=== PATIENT | female | born 1940 | race Caucasian/White ===

== ENCOUNTER 2018-07-01 11:28 | Outpatient (CLI) | payer MEDICARE, BC | END 2018-07-01 11:29 | disposition home or self-care (01) | LOC: CTENTCT 11:28 | PROVIDERS: ATTEND Otolaryngology Plastic Surgery within the Head & Neck | DX: J01.90 Acute sinusitis, unspecified (principal) | CPT/HCPCS: 70486 ==

== ENCOUNTER 2019-02-22 13:35 | Outpatient (CLI) | payer MEDICARE, BC ==
[~2019-02-22 13:35] MED LIST: ISOVUE-370 76%-LOCM 1 ML ONE
--- NOTE | 2019-02-22 16:02 | CT ---
CT arteriogram abdomen and pelvis with IV contrast and 3-D imaging CT arteriogram runoff bilateral lower extremity with IV contrast and 3-D imaging HISTORY: Vascular disease. Claudication. FINDINGS: Bilateral renal cysts. No evidence of bowel obstruction. Prominent degenerative changes lum bar spine. Mild diverticulosis. No evidence of diverticulitis. Prominent calcification throughout the arterial structures. Mild fusiform ectasia of the lower abdomi nal aorta. Visceral arteries of the abdomen and pelvis are patent with mild to moderate arterial calcification. Dense calcified narrowing at the origin of the right common iliac artery with stenosis estimated at 50%. Occlusion at the proximal right femoral artery with collateralization through the deep femoral b ranches. Reconstitution near the level of the adductor hiatus. Calcification and multilevel mild to moderate narrowing within the popliteal artery. Three-vessel runoff to the right lower leg. Fusiform ectasia of the left common iliac artery. Postoperative changes evident at the left groin. Ca lcification with short segment focus of approximately 50% stenosis within the mid left femoral artery. Multifocal mild stenoses along the course of the femoral and popliteal artery. At the level o f the knee, there is a short segment focus of high-grade stenosis. Three-vessel runoff to the left lower leg. IMPRESSION: Severe atherosclerosis. Long segment occlusion of the right femoral artery. Reconstitutio n near the level of the adductor hiatus. Short segment focus of high grade stenosis at the mid left popliteal artery.
== END 2019-02-22 13:36 | disposition home or self-care (01) ==
LOC: BICCT 13:35
PROVIDERS: ATTEND Thoracic Surgery (Cardiothoracic Vascular Surgery)
DX: I65.8 Occlusion and stenosis of other precerebral arteries (principal); I70.90 Unspecified atherosclerosis; I70.8 Atherosclerosis of other arteries
CPT/HCPCS: 75635; 82565; Q9966

== ENCOUNTER 2019-06-07 07:27 | Outpatient (CLI) | payer MEDICARE, BC ==
[2019-06-07] MEDS ORDERED: Iopamidol 370 76% 100 ML VIAL ONE (09:00)
--- NOTE | 2019-06-07 12:10 | CT ---
CT ABDOMEN WITH IV AND ORAL CONTRAST: Date: 06/07/19 HISTORY: Abdominal bloating. FINDINGS: The lung bases are unremarkable. The liver demonstrates decreased attenuation compared to the spleen consistent with fatty infiltration. No hepatic mass or abnormal biliary ductal dilatation is seen. No calcified gallstones are noted. The spleen is not enlarged and has a normal appearance, measuring 12 .4 cm. The body and tail of the pancreas are atrophic. The remainder of the pancreas is otherwise unr emarkable. The portal vein is dilated. No portosplenic thrombosis seen. Varicosities are seen in the gastrohepatic ligament. The adrenal glands are normal. There are cysts in the kidneys. No free air, free fluid, or lymphadenopathy seen in the abdomen. The small bowel loops are not abnorm ally dilated. There is fecal material in the colon. There is sigmoid diverticulosis. Vascular calcifi cations are present without evidence of aneurysmal dilatation of the abdominal aorta. There are degen erative changes in the spine. IMPRESSION: 1. Fatty liver. 2. Dilated portal vein without evidence of portosplenic thrombosis. 3. Varicosities in the gastrohepatic ligament. 4. Bilateral renal cysts. POS: [facility]
== END 2019-06-07 07:28 | disposition home or self-care (01) ==
LOC: SCSCT 07:27
PROVIDERS: ATTEND Internal Medicine Gastroenterology
DX: R93.89 Abnormal findings on diagnostic imaging of other specified body structures (principal); K76.0 Fatty (change of) liver, not elsewhere classified; N28.1 Cyst of kidney, acquired; I86.4 Gastric varices; I86.8 Varicose veins of other specified sites
CPT/HCPCS: 74160; 82565; Q9967

== ENCOUNTER 2020-10-29 12:39 | Inpatient (IN) | payer MEDICARE, BC ==
[~2020-10-29 12:39] MED LIST changes: -ISOVUE-370 76%-LOCM 1 ML ONE; +Iopamidol 370 76% 50 ML VIAL FS ONE; +Iopamidol-370 76% 500 ML 1 ML ONE
[2020-10-29 13:27] LABS: PTT 28.1 sec (22.9-36.1)
--- NOTE | 2020-10-29 13:27 | RAD ---
Chest AP view INDICATION: Chest pain COMPARISON: Prior exam dated October [facility], [facility] FINDINGS: Lungs: There is increased interstitial and groundglass opacity within the right upper lobe and right lower lobe that appears slightly more pronounced than on the prior exam. Left lung remains clear. Cardiac silhouette: Mild cardiomegaly is stable Pulmonary vasculature: Normal Pleural spaces: No pleural effusion or pneumothorax is demonstrated. Upper abdomen: No abnormality seen. Osseous structures: No acute osseous abnormality. Additional findings: There are surgical clips within the right neck base IMPRESSION: Increased interstitial and groundglass airspace opacity right upper lobe and right lower lobe suspici ous for pneumonia. Stable cardiomegaly
[2020-10-29 13:28] LABS: INR-International Normal Ratio 1.2; Prothrombin Time 15.4 sec (12.0-14.7)
[2020-10-29 13:36] LABS: Hemoglobin 16.5 g/dL (12.0-16.0); Mean Corpuscular HGB CONC 33.1 g/dL (32.0-36.0); Mean Corpuscular Hemoglobin 32.1 pg (27.0-31.0); Mean Corpuscular Volume 96.9 fL (78.0-98.0); Mean Platelet Volume 9.1 fL (7.4-10.4); Platelet Count 182 thou/uL (130-400); RBC Distribution Width 15.2 % (11.5-14.5); Red Blood Cell (RBC) Count 5.14 mill/uL (4.20-5.40)
[2020-10-29 13:42] LABS: White Blood Cell (WBC) Count 23.6 thou/uL (4.8-10.8)
[2020-10-29 13:47] LABS: Band 4 % (5-11); Lymphocytes 3 % (21-51); MDiff Complete? YES; Monocytes 2 % (0-10); Neutrophil 91 % (42-75); Platelet Morphology Comment Appears Adequate; RBC Morphology Normal
[2020-10-29 13:51] LABS: ALT (SGPT) 231 U/L (8-55); AST (SGOT) 195 U/L (5-34); Albumin 3.2 g/dL (3.4-4.8); Alkaline Phosphatase 545 U/L (40-110); Anion Gap 14 mmol/L (10-20); BUN (Urea Nitrogen) 28 mg/dL (9.8-20.1); Bilirubin, Total 15.3 mg/dL (0.2-1.2); Calc. Creatinine Clearance 0 mL/min (70-130); Calcium 8.7 mg/dL (7.8-10.44); Carbon Dioxide 35 mmol/L (23-31); Chloride 90 mmol/L (98-107); Globulin 2.7 g/dL (2.4-3.5); Glucose 135 mg/dL (83-110); Magnesium 2.4 mg/dL (1.6-2.6); Protein, Total 5.9 g/dL (5.8-8.1); Sodium 137 mmol/L (136-145)
[2020-10-29 13:58] LABS: Potassium 2.1 mmol/L (3.5-5.1)
[2020-10-29 14:07] LABS: CKMB 2.3 ng/mL (0-6.6)
[2020-10-29] MEDS ORDERED: NS 0.9% w/ 20 MEQ KCL 1,000 ML IV SCH (14:30)
[2020-10-29] MEDS ORDERED: Aspirin Chewable 81 MG TAB ONE (14:44)
[2020-10-29] MEDS ORDERED: Potassium Chloride 20 MEQ TAB PO SCH ×2 (15:00→21:00)
[2020-10-29] MEDS ORDERED: Potassium Chloride 20 MEQ TAB ONE (15:04)
[2020-10-29] MEDS ORDERED: Magnesium 2 GM/50 ML BAG (IN WATER) ONE (15:04)
[2020-10-29] MEDS ORDERED: Cefepime 2 GM VIAL ONE (15:04)
--- NOTE | 2020-10-29 15:44 | CT ---
CT OF THE ABDOMEN AND PELVIS WITH IV CONTRAST INDICATION: History of abnormal LFTs and abdominal discomfort COMPARISON: Bilateral quadrant ultrasound dated October 26, [address] the abdomen dated June 07, 2019. Comparisons are also made with a CTA aortic dissection protocol dated February 22, 2019. FINDINGS: ABDOMEN: Lung bases: There are small bilateral pleural effusions bibasilar atelectasis. There are multiple pul monary nodules involving both lower lobe suspicious for metastatic disease. There is reticular nodular opacity within the right middle lobe which may reflect a comminuted subsegmental volume loss in the pulmonary lesion. Liver: Numerous hypodense masses are seen within the liver suspicious for metastatic disease. Gallbladder: Contracted Pancreas: Normal. Adrenal glands: Normal. Spleen: Normal. Kidneys and ureters: Bilateral renal cysts are stable. No hydronephrosis. Vasculature: There are severe vascular calcifications seen involving the visualized vasculature. Ther e is mild ectasia of the infrarenal abdominal aorta. Lymph nodes:No lymphadenopathy. Free fluid in abdomen:No free fluid is evident. PELVIS: Small and large bowel: There are scattered colonic diverticula. There is a mild amount retained stool within the colon. The small bowel is of normal caliber. Visualized stomach is unremarkable. Appendix:Not definitely seen Bladder: Normal. Rectal and perirectal soft tissues:Normal. Reproductive structures: Normal. Free fluid in pelvis: No free fluid is evident. Lymphadenopathy pelvis: No lymphadenopathy is evident. Osseous structures: There is diffuse osteopenia. There is subtle 9 mm sclerotic lesion within the yanna tral aspect of L1. This is new from the 2019 examination. There is scattered degenerative and osteoarthritic changes. Soft tissues:Normal. IMPRESSION: 1. Pulmonary and hepatic metastatic disease. 2. Small sclerotic lesion within the central aspect of L1 is new from 2019 suspicious for early osseo us metastatic disease. No additional focal lesion is evident. Bone scan is recommended for further evaluation. 3. Cardiomegaly with small bilateral pleural effusions suspicious for mild CHF. 4. Colonic diverticulosis without evidence of active diverticulitis. Mild amount retained stool withi n the colon. 5. Bilateral renal cysts. 6. Mild ectasia of the infrarenal abdominal aorta.
[2020-10-29] MEDS ORDERED: Ondansetron PF 4 MG/2 ML Vial IVP PRN (20:00)
[2020-10-29] MEDS ORDERED: Ondansetron ODT 4 MG TAB SL PRN (20:00)
[2020-10-29] MEDS ORDERED: Acetaminophen 325 MG TAB PO PRN ×2 (20:00→20:18)
[2020-10-29] MEDS ORDERED: Dextrose 5% in Water 1,000 ML IV PRN (20:18)
[2020-10-29] MEDS ORDERED: Dextrose 50% Abboject 50 ML SYRINGE SLOW IVP PRN (20:18)
[2020-10-29] MEDS ORDERED: hydrALAZINE 20 MG/ML VIAL SLOW IVP PRN (20:18)
[2020-10-29] MEDS ORDERED: HYDROcodone/Acetaminophen 5/325 mg Tablet PO PRN (20:18)
[2020-10-29 20:37] VITALS: BMI 26.6
[2020-10-29] MEDS ORDERED: cefTRIAXone\\ROCEPHIN 1 GM in Sodium Chloride 0.9% 100 ML IVPB SCH (21:00)
[2020-10-29] MEDS: Enoxaparin Sodium 80 MG/0.8 ML SYRINGE SC SCH (21:49)
[2020-10-29] MEDS: NS 0.9% w/ 20 MEQ KCL 1,000 ML/1,000 ML BAG IV SCH (21:49)
[2020-10-29] MEDS ORDERED: Azithromycin 500 MG in Sodium Chloride 0.9% 250 ML 250 ML IVPB SCH (22:00)
--- NOTE | 2020-10-29 22:56 | HP ---
PRIMARY CARE PHYSICIAN: Dr. Sands. CHIEF COMPLAINT: Abnormal lab results. HISTORY OF PRESENT ILLNESS: Ms. Zhao is a very pleasant 80-year-old female who has a history of fatty liver disease. She also has a history of Galvan's esophagus. She says that she has been seeing Dr. Quiroz with regard to the fatty liver. She did some routine lab work and discovered some significant abnormalities and had her come to the emergency room. In the ER, she was found to be severely hypokalemic with a potassium of 2.1. Her transaminases as well as alkaline phosphatase and bilirubin were all elevated and as such, a CT scan of the abdomen was done, which demonstrated multiple nodules within the liver as well as the lungs. She is being admitted for further evaluation. When asked if the patient has had any type of symptoms, she says she has just been feeling tired and weak for the past two months. She also notes unintentional weight loss of about 15 pounds, but no other symptoms. Apparently, she endorsed some cramping abdominal pain to the ER physician, but she denied that when I asked. She has not had any change in her bowels. No vomiting. No fevers. No chills. Otherwise, she has no other complaints. REVIEW OF SYSTEMS: All systems were reviewed and are negative except for that mentioned in the history of present illness. PAST MEDICAL HISTORY: Significant for diabetes, hypertension, hyperlipidemia, peripheral vascular disease, obstructive sleep apnea, Galvan's esophagus, and atrial fibrillation on anticoagulation. PAST SURGICAL HISTORY: She has had a left femoral endarterectomy and a right carotid endarterectomy. ALLERGIES: NO KNOWN DRUG ALLERGIES. FAMILY HISTORY: Significant for heart disease. SOCIAL HISTORY: She is a former smoker. She quit 20 years ago. Prior to that, she smoked two packs a day for at least 40 years. Denies any alcohol use. She says she is happily . She has 2 children and would like to be a full code. CURRENT MEDICATIONS: She says she does not know the names of her medications, but she does go to the [facility] and uses [facility]. PHYSICAL EXAMINATION: GENERAL: She is well developed and well nourished. She does not appear to be in any distress. VITAL SIGNS: Blood pressure was 120/64, heart rate 62, respiratory rate of 17, and temperature was 98.5. HEENT: Her pupils are equal, round, and reactive. Extraocular muscles are intact. Her sclerae are anicteric. NECK: There is no adenopathy. No bruits. LUNGS: Clear to auscultation. There was no wheezing, no rales, no rhonchi. CARDIOVASCULAR: She had a normal S1 and S2. There is no S3 or S4. No murmurs, clicks, or rubs. ABDOMEN: Obese. It is soft, nontender, nondistended. Positive for bowel sounds. No rebound. No guarding. No organomegaly. EXTREMITIES: There is no calf tenderness. No joint effusions. NEUROLOGIC: Her cranial nerves 2 through 12 are intact. Her muscle strength is 5/5 in both her upper and lower extremities. SKIN AND INTEGUMENT: No skin changes. No rashes. LABORATORY DATA: INR is 1.2. The white blood cell count 23.6, hemoglobin 16.5, hematocrit is 49.8, and platelet count is 182. Sodium 137, potassium 2.1, chloride is 90, CO2 is 35, BUN of 28, creatinine 1.02, glucose is 135, magnesium 2.4. Bilirubin is 15.3, AST is 195, ALT is 231, alkaline phosphatase is 545. Natriuretic peptide was 696. Troponin is 0.[address] scan of the abdomen and pelvis, there were multiple pulmonary nodules. There are multiple numerous hypodensities in the liver. There is a small sclerotic lesion at L1 and bilateral renal cyst and evidence of diverticulosis without diverticulitis. She also had a chest x-ray that is demonstrated for cardiomegaly. She had small pleural effusions by my reading and some patchy increase interstitial markings in both lungs. This is by my reading. ASSESSMENT: This is a pleasant 80-year-old female who presents to the emergency room with unintentional weight loss and elevated liver function test and CT evidence suspicious for possible metastatic disease. She has a history of Galvan's esophagus; however, she says this has been monitored closely. However, this is considered a precancerous lesion and therefore, we will start with GI workup and therefore, consult Gastroenterology. We will also check an alpha fetoprotein and a CEA and a CA-125. 1. Bilateral infiltrates. It is possible that this is metastatic disease; however, pneumonia cannot be entirely ruled out. She will be getting a COVID screen and we will also start her on antibiotics for community-acquired pneumonia given the elevated white blood cell count. 2. Hypokalemia. This is likely due to poor oral intake. This will be replaced. 3. Atrial fibrillation. We will need to reconcile and restart her medications. However, we will place her on full dose Lovenox instead of the oral medication in the event she needs a biopsy or some type of procedure. 4. Diabetes mellitus. Again, we will need to reconcile and restart her medications and place her on a sliding scale. 5. Obstructive sleep apnea. She says she believes her CPAP settings are 14 cm of water and therefore, we can place her on nocturnal CPAP. Job ID: [id number] MTDD
[2020-10-29 22:57] LABS: Alpha-Fetoprotein,Tumor Marker 4.3 ng/mL (0.89-8.78)
[2020-10-29 23:29] LABS: Cancer Antigen - CA 125 1674.7 U/mL (Less than 35)
[2020-10-30 02:56] LABS: SARS-CoV-2 PCR by NAA Not Detected (NotDetected)
[2020-10-30 04:59] LABS: #Eosinphils 0.1 thou/uL (0.0-0.7); #Lymphocytes 0.7 thou/uL (1.20-3.40); #Neutrophils 8.2 thou/uL (1.40-6.50); %Basophils 0.1 % (0.0-1.0); %Eosinophils 0.7 % (0.0-10.0); %Lymphocytes 6.7 % (21.0-51.0); %Monocytes 10.3 % (0.0-10.0); %Neutrophils 82.2 % (42.0-75.0); Hemoglobin 14.6 g/dL (12.0-16.0); Mean Corpuscular HGB CONC 33.5 g/dL (32.0-36.0); Mean Corpuscular Hemoglobin 32.6 pg (27.0-31.0); Mean Corpuscular Volume 97.2 fL (78.0-98.0); Mean Platelet Volume 9.5 fL (7.4-10.4); Platelet Count 136 thou/uL (130-400); RBC Distribution Width 15.4 % (11.5-14.5); Red Blood Cell (RBC) Count 4.48 mill/uL (4.20-5.40)
[2020-10-30 05:16] LABS: Anion Gap 15 mmol/L (10-20); BUN (Urea Nitrogen) 24 mg/dL (9.8-20.1); Calc. Creatinine Clearance 72 mL/min (70-130); Calcium 7.7 mg/dL (7.8-10.44); Carbon Dioxide 28 mmol/L (23-31); Chloride 96 mmol/L (98-107); Glucose 137 mg/dL (83-110); Potassium 3.5 mmol/L (3.5-5.1); Sodium 135 mmol/L (136-145)
[2020-10-30] MEDS: Enoxaparin Sodium 80 MG/0.8 ML SYRINGE SC SCH ×2 (08:45→20:44)
[2020-10-30] MEDS ORDERED: Iopamidol 370 76% 100 ML VIAL ONE (10:13)
[2020-10-30] MEDS ORDERED: Ondansetron PF 4 MG/2 ML Vial IVP PRN (10:39)
--- NOTE | 2020-10-30 13:37 | CT ---
CHEST CT WITH CONTRAST: HISTORY: Multiple liver masses. Evaluate for intrathoracic metastases. COMPARISON: None. CORRELATION: Abdomen and pelvis CT 10/29/2020. FINDINGS: Lower neck and axilla: No masses or lymphadenopathy. There are enlarged, necrotic mediastinal lymph nodes. Enlarged right paratracheal lymph node measures 2.8 x 2.6 cm, enlarged prevascular lymph node measures 2.8 x 1.5 cm. Subcarinal enlarged lymph node measures 2.2 x 2.8 cm. Enlarged bilateral hilar lymphadenopathy. Enlarged right hilar lymph node s measured 2.7 x 4.3 cm. Heart size is upper normal. No significant pericardial fluid. There are coronary artery calcification s There is atherosclerosis of a nonaneurysmal aorta. 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 Subdiaphragmatic structures: Refer to separate CT from yesterday with regards to the upper abdomen. T here is evidence of extensive hepatic metastases. Pleural spaces: Small right and trace left effusion. No pneumothorax. Trachea and central bronchi are patent. There is extensive septal thickening throughout the lung parenchyma along with groundglass nodularity . There is a focal masslike opacity in the middle lobe measuring 1.6 x 1.1 cm. Additional pleural-based densities are noted. IMPRESSION: There is evidence of mediastinal lymphadenopathy. Additionally, there appear to be multiple groundgla ss nodules throughout the lung parenchyma suggesting multifocal lung parenchymal metastases. There is a more focal opacity in the middle lobe. Some of these opacities abuts the pleural margins. Transcribed Date/Time: 10/30/2020 1:58 PM
[2020-10-30] MEDS: NS 0.9% w/ 20 MEQ KCL 1,000 ML/1,000 ML BAG IV SCH ×2 (16:12→20:45)
--- NOTE | 2020-10-30 17:37 | PDOC.HOSPP ---
- Subjective Encounter Date: 10/30/20 Subjective: Patient says she is feeling okay. She did not sleep well overnight because all of her medical situation is weighing on her mind. - Objective Vital Signs & Weight: Vital Signs (12 hours) Temp Pulse Resp BP Pulse Ox 10/30/20 16:13 97.9 F 88 17 129/63 97 10/30/20 12:15 98.3 F 70 17 140/70 95 10/30/20 07:30 97.6 F 68 16 145/69 H 96 Weight Weight 175 lb I&O: 10/29/20 10/30/20 10/31/20 06:59 06:59 06:59 Intake Total 500 Output Total 525 Balance -25 Result Diagrams: 10/30/20 04:27 10/30/20 04:27 Additional Labs: Accuchecks 10/30/20 10/30/20 10/29/20 12:37 05:57 20:26 POC Glucose 63 L 125 H 116 H Hospitalist ROS - Medication Medications: Active Medications Generic Name Dose Route Start Last Admin Trade Name Prabhjot PRN Reason Stop Dose Admin Enoxaparin Sodium 80 mg 10/29/20 21:00 10/30/20 08:45 Enoxaparin Sodium 80 Mg/0.8 Ml Syringe SC 80 mg 0900,2100 [facility] Administration Potassium Chloride/Sodium Chloride 1,000 ml in 1,000 mls @ 75 mls/hr 10/29/20 20:18 10/30/20 16:12 Ns 0.9% W/ 20 Meq Kcl IV Not Given .[id number] [facility] Pantoprazole Sodium 40 mg 10/30/20 09:00 10/30/20 08:46 Pantoprazole 40 Mg Tab PO 40 mg DAILY LEONARDO Administration Hospitalist Exam Vitals: Vital Signs (12 hours) Temp Pulse Resp BP Pulse Ox 10/30/20 16:13 97.9 F 88 17 129/63 97 10/30/20 12:15 98.3 F 70 17 140/70 95 10/30/20 07:30 97.6 F 68 16 145/69 H 96 Weight Weight 175 lb General Appearance: NAD Heart: RRR, no murmur, no gallops, no rubs, normal peripheral pulses Respiratory: CTAB, no wheezes, no rales, no ronchi, normal chest expansion, no tachypnea, normal percussion Gastrointestinal: soft, non-tender, non-distended, normal bowel sounds, no palpable masses, no hepatomegaly, no splenomegaly, no bruit Extremities: no cyanosis, no clubbing, no edema Skin: normal turgor Neurological: no new deficit Musculoskeletal: normal tone Psychiatric: normal affect, normal behavior, A&O x 3 Hosp A/P (1) Liver metastases Code(s): C78.7 - SECONDARY MALIG NEOPLASM OF LIVER AND INTRAHEPATIC BILE DUCT Status: Acute (2) Lung metastases Code(s): C78.00 - SECONDARY MALIGNANT NEOPLASM OF UNSPECIFIED LUNG Status: Acute (3) Diabetes mellitus type 2 in nonobese Code(s): E11.9 - TYPE 2 DIABETES MELLITUS WITHOUT COMPLICATIONS Status: Acute (4) Hypertension Code(s): I10 - ESSENTIAL (PRIMARY) HYPERTENSION Status: Acute (5) Hyperlipidemia Code(s): E78.5 - HYPERLIPIDEMIA, UNSPECIFIED Status: Acute (6) Obstructive sleep apnea Code(s): G47.33 - OBSTRUCTIVE SLEEP APNEA (ADULT) (PEDIATRIC) Status: Acute (7) Barretts esophagus Code(s): K22.70 - GONZALEZ'S ESOPHAGUS WITHOUT DYSPLASIA Status: Acute (8) Atrial fibrillation Code(s): I48.91 - UNSPECIFIED ATRIAL FIBRILLATION Status: Acute (9) PVD (peripheral vascular disease) Code(s): I73.9 - PERIPHERAL VASCULAR DISEASE, UNSPECIFIED Status: Acute - Plan Metastatic disease: Patient has evidence of numerous mets to her lungs and her liver. Primary site is as of yet unknown. She had a significantly elevated CEA and CA- 125 although her CA 19-9 and AFP or within normal range. She will need a biopsy. Discussed with Dr. Pruitt of the GI service. Obtained a CT today of the chest. Ordered a bone scan to assess the metastases that appear to be in the spine. His intention is to do an MRCP. May need to consider endoscopy. She will ultimately likely need a liver biopsy. The fact that she has been on Eliquis however precludes us from doing it timely. Atrial fibrillation: Patient has a history of A. fib. She takes Eliquis. Holding Eliquis for now and substituting with Lovenox in anticipation of likely needing a biopsy. Continue with digoxin. Hypertension: Continue with home medications including telmisartan 80 mg daily, amlodipine 10 mg daily, HCTZ 25 mg daily. Hyperlipidemia: Continue with rosuvastatin 20 mg p.o. daily Diabetes mellitus: Her home medications are not available here. Continue Accu-Cheks with sliding scale insulin.
--- NOTE | 2020-10-30 19:20 | CON ---
DATE OF CONSULTATION: 10/30/2020 REQUESTING PHYSICIAN: Dr. Hendricks. REASON FOR CONSULTATION: Elevated LFTs. HISTORY OF PRESENT ILLNESS: Carlene Zhao is an 80-year-old woman, who has been seen by my GI colleague, Dr. Elizabet Quiroz. She has a history significant for peripheral vascular disease, rheumatoid arthritis, and atrial fibrillation, for which she is on Eliquis. She reports having had a normal colonoscopy about [address] Quiroz. She had a more recent EGD in July 2019 due to prior history of Galvan's, that examination actually showed no Galvan's. There was some mild portal gastropathy. No evidence of any esophageal varices. She carries a diagnosis of nonalcoholic steatohepatitis and had pretty extensive lab workup for this in March 2020. JOSE was positive, but otherwise workup was negative including viral hepatitis serologies, ferritin, ceruloplasmin, alpha-1 antitrypsin, AMA, and ASMA. Fibrosis scan at that time really showed no significant fibrosis and LFTs were nearly normal. For about the past 2 months, the patient has been experiencing some significant fatigue. She has also noticed a dark discoloration of her urine, but otherwise she has been asymptomatic. There has been no abdominal pain, nausea, or vomiting. No diarrhea or constipation. Despite normal oral intake, though she has lost about 15 pounds over the past couple of months unintentionally. She was admitted to the hospital yesterday after routine lab work showed some significant abnormalities including severe new elevation in LFTs as well as hypokalemia. Her total bilirubin is up to 15.3, alkaline phosphatase 545, AST 195, ALT 231. She has elevation in a few tumor markers as well. CA-19-9 is elevated to 1600; CA-125 is elevated to 1674.7; and CEA mildly elevated to 9.06. AFP is normal at 4.3. A CT of the abdomen and pelvis unfortunately shows finding suspicious for diffuse metastatic disease to the bilateral lower lobes of the lung as well as throughout the entire liver. PAST MEDICAL HISTORY: 1. Atrial fibrillation, on Eliquis. 2. Peripheral vascular disease. 3. Right carotid endarterectomy. 4. Rheumatoid arthritis. 5. Diabetes. 6. GERD. 7. Sleep apnea. 8. Hypertension. 9. Hyperlipidemia. 10. Nonalcoholic steatohepatitis. 11. Former tobacco abuse. SOCIAL HISTORY: She is a former tobacco user. No alcohol or drug use. FAMILY HISTORY: Negative for gastrointestinal malignancy. ALLERGIES: NO KNOWN DRUG ALLERGIES. OUTPATIENT MEDICATIONS: 1. Telmisartan. 2. Amlodipine. 3. Crestor. 4. Digoxin. 5. Hydrochlorothiazide. 6. Bystolic. 7. Eliquis 5 mg b.i.d. (held today). 8. Fluoxetine. 9. Pantoprazole 20 mg daily. 10. Plaquenil. 11. Qtern. 12. Ibuprofen. 13. Insulin glargine 68 units subcu in the a.m. 14. Aspirin 81 mg daily. 15. Multivitamin. 16. Vitamin D3. 17. Fish oil. 18. Vitamin B12. 19. Milk Thistle. 20. Magnesium oxide 400 mg daily. 21. Zinc 25 mg daily. 22. Zyrtec 10 mg daily. 23. Iron 18 mg daily. REVIEW OF SYSTEMS: Full review of systems including constitutional, head, eyes, ears, nose, throat, GI, , cardiovascular, respiratory, musculoskeletal, neurologic systems is negative except as noted in the HPI. PHYSICAL EXAMINATION: VITAL SIGNS: Temperature 97.6, pulse 68, blood pressure 145/69, 96% oxygen saturation on room air. GENERAL: An 80-year-old woman, sitting up in the chair comfortably, in no distress. SKIN: She is jaundiced. A lot of subcutaneous ecchymoses to the upper extremities bilaterally. HEENT: Eyes, there is scleral icterus. Extraocular movements intact. ENT, mucous membranes moist. No oral lesions. LYMPH: No submandibular or supraclavicular lymphadenopathy. THYROID: Nontender to palpation. HEART: Regular rate and rhythm. LUNGS: Clear to auscultation bilaterally. ABDOMEN: Nondistended. Bowel sounds present. Soft, nontender to palpation throughout. EXTREMITIES: No peripheral edema. VESSELS: Radial pulses 2+ bilaterally. NEUROLOGIC: Cranial nerves 2 through 12 intact bilaterally. No focal deficits. LABORATORY STUDIES: WBC initially 23.6 now down to 10.0, hemoglobin 14.6, platelets 136. INR 1.2. Sodium 135, potassium 3.5, BUN 24, creatinine 0.77, glucose 125. COVID PCR is negative. Total bilirubin elevated to 15.3, alkaline phosphatase 545, AST 195, ALT 231, albumin 3.2. BNP is 696. AFP is normal at 4.3. CEA elevated to 9.06. CA-125 is very elevated to 1674.7. CA-19-9 is elevated to 1600. IMAGING STUDIES: CT of the abdomen and pelvis demonstrates bilateral lower lobe pulmonary nodules suspicious for metastatic disease. There are numerous liver masses throughout the entire liver and this is highly suspicious for metastatic disease. There is a possible metastasis in L1, gallbladder is contracted. Spleen and pancreas appeared normal by CT. There is no lymphadenopathy or ascites. ASSESSMENT AND PLAN: 1. Diffuse metastatic disease to liver and lung. 2. Jaundice, secondary to diffuse metastatic disease to the liver. 3. Elevated CA-125. 4. Elevated CA-19-9. This is all fairly acute over the past couple of months. Note that, imaging studies 1 year ago did not demonstrate any evidence of metastatic disease. It is unclear what the primary malignancy is. With elevations in CA-125, as well as CA-19-9, consider uterine or ovarian source, though the CT was unrevealing in that regard. Consider also pancreatic or biliary source, though CT did not show any pancreatic lesion, but this is not most sensitive for this. I think gastric or colonic primary is a bit less likely, given the relatively low CEA level. The fact that she had upper endoscopy just over a year ago and colonoscopy 7 years ago, but this does remain in the differential. Her Eliquis is being appropriately held. My recommendation would be to get MRCP imaging for better visualization of the pancreas as well as the biliary system, rule out any common bile duct obstruction that might be contributing to the jaundice. I suspect it is all from just diffuse metastatic disease of the liver. Have her on a clear liquid diet tomorrow. Depending on MRCP imaging findings, upper and lower endoscopy could be considered the following day, versus going straight to Interventional Radiology for percutaneous biopsy of one of these liver lesions. Thank you for the consultation. Please call anytime with questions or concerns. Job ID: [id number]
[2020-10-30] MEDS: Melatonin 3 MG TAB PO SCH (20:44)
[2020-10-30] MEDS: Rosuvastatin 20 MG TAB PO SCH (20:44)
[2020-10-30] MEDS: Nebivolol HCl 5 MG TAB PO SCH (20:49)
[2020-10-30] MEDS: HumaLOG 300 UNITS/3 ML VIAL SC PRN (20:52)
[2020-10-31] MEDS: Hydrochlorothiazide 25 MG TAB PO SCH (07:56)
[2020-10-31] MEDS: Loratadine 10 MG TAB PO SCH (07:57)
[2020-10-31] MEDS: Losartan 25 MG TAB PO SCH (07:57)
[2020-10-31] MEDS: Cholecalciferol 1,000 UNITS (25 MCG) TAB PO SCH (07:58)
[2020-10-31] MEDS: Digoxin 0.125 MG TAB PO SCH (07:58)
[2020-10-31] MEDS: Amlodipine 10 MG TAB PO SCH (07:59)
[2020-10-31] MEDS: Nebivolol HCl 5 MG TAB PO SCH ×2 (07:59→20:21)
[2020-10-31] MEDS: FLUoxetine HCl 20 MG CAP PO SCH (07:59)
[2020-10-31] MEDS: Hydroxychloroquine Sulfate 200 MG TAB PO SCH (08:00)
[2020-10-31] MEDS ORDERED: Senokot S 8.6-50 MG TAB PO PRN (08:25)
[2020-10-31] MEDS ORDERED: Bisacodyl 5 MG TAB PO PRN (08:25)
[2020-10-31] MEDS ORDERED: GUAIFENESIN SF SOLN 200 MG/10 ML UDCUP PO PRN (08:25)
[2020-10-31] MEDS ORDERED: Calcium Carbonate 500 MG ChewTAB PO PRN (08:25)
[2020-10-31] MEDS ORDERED: Cepastat Lozenges 1 LOZ PO PRN (08:25)
[2020-10-31] MEDS ORDERED: Ondansetron ODT 4 MG TAB PO PRN (08:25)
[2020-10-31] MEDS ORDERED: Zolpidem Tartrate 5 MG TAB PO PRN (08:25)
[2020-10-31] MEDS ORDERED: Benzonatate 100 MG CAP PO PRN (08:25)
[2020-10-31] MEDS ORDERED: Loperamide HCl 2 MG CAP PO PRN (08:25)
[2020-10-31] MEDS ORDERED: Sodium Chloride 0.65% Nasal 44 ML BOT EA NARE PRN (08:25)
[2020-10-31] MEDS ORDERED: Aspirin 81 mg Enteric Coated Tablet PO SCH (09:00)
--- NOTE | 2020-10-31 09:22 | MRI ---
EXAM: MRI of the abdomen without and with contrast COMPARISON: CT abdomen/pelvis 10/29/2020 HISTORY: Jaundice. Lung cancer with metastases TECHNIQUE: Multiplanar multi sequence MR images were taken of the abdomen without and with IV contras t. An MRCP was performed. FINDINGS: Liver: There are innumerable lesions scattered throughout the liver consistent with multifocal metast ases. This involves the majority of the liver. Gallbladder: No filling defects or gallbladder wall thickening. Common bile duct: Normal caliber without filling defects Adrenal glands: Unremarkable. Kidneys: No hydronephrosis. There is a nonenhancing 2.7 cm cyst in the right kidney. A smaller cyst i s also seen in the right kidney. There is an exophytic cyst in the midportion of the left kidney with a small amount of dependent debris. No abnormal areas of enhancement. Spleen: Unremarkable. Pancreas: Unremarkable. No abnormal enhancement. Retroperitoneum: No enlarged lymph nodes Bones: There are scattered areas of enhancement within the bone marrow consistent with osseous metast ases. Visualized inferior thorax: Small right pleural effusion IMPRESSION: 1. Diffuse liver metastases 2. Osseous metastases 3. Bilateral renal cysts
[2020-10-31] MEDS: Enoxaparin Sodium 80 MG/0.8 ML SYRINGE SC SCH (09:26)
[2020-10-31] MEDS: NS 0.9% w/ 20 MEQ KCL 1,000 ML/1,000 ML BAG IV SCH (09:27)
[2020-10-31] MEDS ORDERED: Magnevist 469MG/ML 20 ML VIAL ONE (10:39)
--- NOTE | 2020-10-31 12:04 | PDOC.HOSPP ---
- Subjective Encounter Date: 10/31/20 Encounter Time: 08:45 Subjective: Patient seen and examined bedside today, no overnight event, no new complaint, patient feels fatigue - Objective Vital Signs & Weight: Vital Signs (12 hours) Temp Pulse Resp BP Pulse Ox 10/31/20 08:00 97.9 F 63 22 H 143/78 H 94 L 10/31/20 07:59 68 10/31/20 07:58 68 10/31/20 05:05 98.1 F 68 18 150/87 H 95 10/31/20 00:07 58 L 18 137/78 94 L Weight Weight 175 lb I&O: 10/30/20 10/31/20 11/01/20 06:59 06:59 06:59 Intake Total 500 1400 Output Total 525 Balance -25 1400 Result Diagrams: 10/30/20 04:27 10/30/20 04:27 Additional Labs: Accuchecks 10/31/20 10/31/20 10/30/20 11:44 05:18 20:43 POC Glucose 159 H 161 H 233 H 10/30/20 10/30/20 16:27 12:37 POC Glucose 119 H 63 L Radiology Reviewed by me: Yes Hospitalist ROS - Review of Systems Constitutional: reports: weakness. denies: fever, chills, sweats, malaise, other ENT: denies: ear pain, ear discharge, nose pain, nose discharge, nose congestion, mouth pain, mouth swelling, throat pain, throat swelling, other Respiratory: denies: cough, dry, shortness of breath, hemoptysis, SOB with excertion, pleuritic pain, sputum, wheezing, other Cardiovascular: denies: chest pain, palpitations, orthopnea, paroxysmal noc. dyspnea, edema, light headedness, other Gastrointestinal: denies: nausea, vomiting, abdominal pain, diarrhea, constipation, melena, hematochezia, other Genitourinary: denies: dysuria, frequency, incontinence, hematuria, retention, other Musculoskeletal: denies: neck pain, shoulder pain, arm pain, back pain, hand pain, leg pain, foot pain, other Skin: denies: rash, lesions, ivette, bruising, other - Medication Medications: Active Medications Generic Name Dose Route Start Last Admin Trade Name Freq PRN Reason Stop Dose Admin Amlodipine Besylate 10 mg 10/31/20 09:00 10/31/20 07:59 Amlodipine 10 Mg Tab PO 10 mg DAILY LEONARDO Administration Aspirin 81 mg 10/31/20 09:00 10/31/20 07:56 Aspirin 81 Mg Enteric Coated Tablet PO 81 mg DAILY LEONARDO Administration Cholecalciferol 5,000 units 10/31/20 09:00 10/31/20 07:58 Cholecalciferol 1,000 Units (25 Mcg) Tab PO 5,000 units DAILY LEONARDO Administration Digoxin 0.125 mg 10/31/20 09:00 10/31/20 07:58 Digoxin 0.125 Mg Tab PO 0.125 mg DAILY LEONARDO Administration Enoxaparin Sodium 80 mg 10/29/20 21:00 10/31/20 09:26 Enoxaparin Sodium 80 Mg/0.8 Ml Syringe SC 80 mg [id number] LEONARDO Administration Fluoxetine HCl 20 mg 10/31/20 09:00 10/31/20 07:59 Fluoxetine Hcl 20 Mg Cap PO 20 mg DAILY LEONARDO Administration Hydrochlorothiazide 25 mg 10/31/20 09:00 10/31/20 07:56 Hydrochlorothiazide 25 Mg Tab PO 25 mg DAILY LEONARDO Administration Hydroxychloroquine Sulfate 200 mg 10/31/20 09:00 10/31/20 08:00 Hydroxychloroquine Sulfate 200 Mg Tab PO 200 mg DAILY LEONARDO Administration Potassium Chloride/Sodium Chloride 1,000 ml in 1,000 mls @ 75 mls/hr 10/29/20 20:18 10/31/20 09:27 Ns 0.9% W/ 20 Meq Kcl IV 1,000 mls .[id number] LEONARDO Administration Insulin Human Lispro 0 units 10/29/20 20:18 10/30/20 20:52 Humalog 300 Units/3 Ml Vial SC 2 unit .BEDTIME SLIDING SC PRN Administration Bedtime Correctional Scale Loratadine 10 mg 10/31/20 09:00 10/31/20 07:57 Loratadine 10 Mg Tab PO 10 mg DAILY LEONARDO Administration Losartan Potassium 100 mg 10/31/20 09:00 10/31/20 07:57 Losartan 25 Mg Tab PO 100 mg DAILY LEONARDO Administration Melatonin 6 mg 10/30/20 21:00 10/30/20 20:44 Melatonin 3 Mg Tab PO 6 mg HS LEONARDO Administration Nebivolol 10 mg 10/30/20 21:00 10/31/20 07:59 Nebivolol Hcl 5 Mg Tab PO 10 mg BID LEONARDO Administration Pantoprazole Sodium 40 mg 10/30/20 09:00 10/31/20 07:59 Pantoprazole 40 Mg Tab PO 40 mg DAILY LEONARDO Administration Rosuvastatin Calcium 20 mg 10/30/20 21:00 10/30/20 20:44 Rosuvastatin 20 Mg Tab PO 20 mg QPM LEONARDO Administration Hospitalist Exam Vitals: Vital Signs (12 hours) Temp Pulse Resp BP Pulse Ox 10/31/20 08:00 97.9 F 63 22 H 143/78 H 94 L 10/31/20 07:59 68 10/31/20 07:58 68 10/31/20 05:05 98.1 F 68 18 150/87 H 95 10/31/20 00:07 58 L 18 137/78 94 L Weight Weight 175 lb General Appearance: NAD, awake alert Eye: scleral icterus ENT: normocephalic atraumatic, no oropharyngeal lesions Neck: supple, symmetric, no JVD, no thyromegaly Heart: RRR, no murmur, no gallops, no rubs Respiratory: no wheezes, no rales, no ronchi Gastrointestinal: soft, non-tender, non-distended, normal bowel sounds Gastrointestinal - other findings: Obesity noted Extremities: no clubbing, no edema Skin: normal turgor, no lesions Neurological: no focal deficits Musculoskeletal: normal tone, normal strength Psychiatric: normal affect, normal behavior Hosp A/P (1) Osseous metastasis Code(s): C79.51 - SECONDARY MALIGNANT NEOPLASM OF BONE Status: Acute (2) Lung metastases Code(s): C78.00 - SECONDARY MALIGNANT NEOPLASM OF UNSPECIFIED LUNG Status: Acute (3) Liver metastases Code(s): C78.7 - SECONDARY MALIG NEOPLASM OF LIVER AND INTRAHEPATIC BILE DUCT Status: Acute (4) Atrial fibrillation Code(s): I48.91 - UNSPECIFIED ATRIAL FIBRILLATION Status: Chronic Qualifiers: Atrial fibrillation type: paroxysmal Qualified Code(s): I48.0 - Paroxysmal atrial fibrillation (5) Barretts esophagus Code(s): K22.70 - GONZALEZ'S ESOPHAGUS WITHOUT DYSPLASIA Status: Chronic (6) Diabetes mellitus type 2 in nonobese Code(s): E11.9 - TYPE 2 DIABETES MELLITUS WITHOUT COMPLICATIONS Status: Chronic (7) Hyperlipidemia Code(s): E78.5 - HYPERLIPIDEMIA, UNSPECIFIED Status: Chronic (8) Hypertension Code(s): I10 - ESSENTIAL (PRIMARY) HYPERTENSION Status: Chronic (9) Obstructive sleep apnea Code(s): G47.33 - OBSTRUCTIVE SLEEP APNEA (ADULT) (PEDIATRIC) Status: Chronic (10) PVD (peripheral vascular disease) Code(s): I73.9 - PERIPHERAL VASCULAR DISEASE, UNSPECIFIED Status: Chronic - Plan old records reviewed/req MRCP report reviewed, Patient has metastatic cancer from unknown primary, We will consult oncology for their opinion Patient will need liver biopsy but unfortunately patient was on Eliquis, will defer that decision to oncology, final treatment plan regarding metastatic cancer will defer to oncology, Medication reviewed and continue provide symptomatic and supportive care We will repeat labs tomorrow
--- NOTE | 2020-10-31 13:22 | NM ---
EXAM: NM Bone Scan STANDARD PROVIDED CLINICAL HISTORY: Metastatic disease. COMPARISON: CT thorax on 10/30/2020 FINDINGS: There is a focal area of intense uptake of radiotracer seen involving the anterior right second rib e nding. CT thorax suggests slight irregularity involving the most medial aspect anterior right second rib, likely posttraumatic in origin. There is a eccentric focus of increased uptake seen in the midthoracic spine at the T9-10 level to th e left of midline. A focal lytic or sclerotic the lesion is not seen on CT examination, but there are multilevel degenerative changes in the spine which could account for this finding. There is a focus of increased uptake of radiotracer seen in the region of the left sacral ala of unce rtain etiology. No corresponding abnormality is seen on recent CT abdomen on 10/29/2020. Exact etiology is uncertain. Follow-up evaluation recommended. Minimal uptake of radiotracer is seen medial aspect right hip joint likely due to mild degenerative c hange. No additional areas of abnormal uptake of radiotracer are visualized within the visualized axial or a ppendicular skeleton. Expected activity is seen in each kidney and in the urinary bladder. IMPRESSION: 1. Focal area of increased uptake right anterior second rib ending worrisome for site of prior injury . 2. Eccentric focus of increased uptake at the T9-T10 level which could be related to degenerative steve nges. Multilevel degenerative changes are seen in this region on recent CT thorax. 3. Focus of increased uptake left sacrum.
[2020-10-31] MEDS: HumaLOG 300 UNITS/3 ML VIAL SC PRN (16:52)
[2020-10-31] MEDS: Rosuvastatin 20 MG TAB PO SCH (20:20)
[2020-10-31] MEDS: Melatonin 3 MG TAB PO SCH (20:20)
--- NOTE | 2020-10-31 21:02 | PRG ---
DATE OF SERVICE: 10/31/2020 SUBJECTIVE: Ms. Zhao is resting comfortably in bed. She has no complaints. OBJECTIVE: VITAL SIGNS: Temperature is 97, pulse 50, blood pressure 130/70. GENERAL: She is icteric. She is sitting in bed. Her daughter is at the bedside. LABORATORY DATA: No CBC today. Glucose 250. CEA was 9. AFP was 4. CA-125, 1674. ASSESSMENT: Multifocal masses in the mediastinum and liver with elevated bilirubin. MRI shows no signs of biliary obstruction. This elevation of bilirubin seems to be related, per patient, to liver by tumor. There is no evidence of pancreatic masses or biliary obstruction. MRI today raise concern for bone metastasis. The bone scan was equivocal for this. RECOMMENDATIONS: Tissue biopsy needs to be made. Liver biopsy will be most reasonable. Mediastinoscopy would be an option. We will order liver biopsy tomorrow. She has been off Eliquis since the , so for that will be adequate. She has been on low-dose aspirin which has been held. She has been on Lovenox, which is being held. I give her evening dose tonight. If for some reason, Radiology will not follow through with a biopsy, an option will be to consider consulting CT surgery for mediastinoscopy and biopsy of one of the large lymph nodes in the mediastinum. I talked with Pulmonary. The lesions are not amenable to bronchoscopy. She has had an EGD a year ago and a colonoscopy 7 years ago with a normal CEA or not. I think it is low yield to proceed to endoscopy before getting a definitive diagnosis. Job ID: [id number]
[2020-11-01] MEDS: NS 0.9% w/ 20 MEQ KCL 1,000 ML/1,000 ML BAG IV SCH ×3 (01:03→17:47)
[2020-11-01 06:30] LABS: #Eosinphils 0.1 thou/uL (0.0-0.7); #Lymphocytes 0.5 thou/uL (1.20-3.40); #Monocytes 0.6 thou/uL (0.11-0.59); #Neutrophils 8.5 thou/uL (1.40-6.50); %Eosinophils 0.7 % (0.0-10.0); %Lymphocytes 5.1 % (21.0-51.0); %Monocytes 6.1 % (0.0-10.0); %Neutrophils 88.2 % (42.0-75.0); Hemoglobin 13.4 g/dL (12.0-16.0); Mean Corpuscular HGB CONC 34.3 g/dL (32.0-36.0); Mean Corpuscular Hemoglobin 33.7 pg (27.0-31.0); Mean Corpuscular Volume 98.4 fL (78.0-98.0); Mean Platelet Volume 9.5 fL (7.4-10.4); Platelet Count 130 thou/uL (130-400); RBC Distribution Width 16.1 % (11.5-14.5); Red Blood Cell (RBC) Count 3.98 mill/uL (4.20-5.40); White Blood Cell (WBC) Count 9.7 thou/uL (4.8-10.8)
[2020-11-01 06:49] LABS: ALT (SGPT) 143 U/L (8-55); AST (SGOT) 87 U/L (5-34); Albumin 2.6 g/dL (3.4-4.8); Alkaline Phosphatase 450 U/L (40-110); Anion Gap 10 mmol/L (10-20); BUN (Urea Nitrogen) 19 mg/dL (9.8-20.1); Bilirubin, Total 11.2 mg/dL (0.2-1.2); Calc. Creatinine Clearance 75 mL/min (70-130); Calcium 7.6 mg/dL (7.8-10.44); Carbon Dioxide 35 mmol/L (23-31); Chloride 98 mmol/L (98-107); Globulin 2.1 g/dL (2.4-3.5); Glucose 159 mg/dL (83-110); Protein, Total 4.7 g/dL (5.8-8.1); Sodium 141 mmol/L (136-145)
[2020-11-01 06:51] LABS: Potassium 2.2 mmol/L (3.5-5.1)
[2020-11-01] MEDS: Cholecalciferol 1,000 UNITS (25 MCG) TAB PO SCH (08:10)
[2020-11-01] MEDS: Losartan 25 MG TAB PO SCH (08:10)
[2020-11-01] MEDS: Amlodipine 10 MG TAB PO SCH (08:10)
[2020-11-01] MEDS: Loratadine 10 MG TAB PO SCH (08:11)
[2020-11-01] MEDS: Hydrochlorothiazide 25 MG TAB PO SCH (08:11)
[2020-11-01] MEDS: FLUoxetine HCl 20 MG CAP PO SCH (08:11)
[2020-11-01] MEDS: Digoxin 0.125 MG TAB PO SCH (08:11)
[2020-11-01] MEDS: Nebivolol HCl 5 MG TAB PO SCH ×2 (08:11→20:00)
[2020-11-01] MEDS: Hydroxychloroquine Sulfate 200 MG TAB PO SCH (08:11)
[2020-11-01] MEDS ORDERED: Potassium Chloride 20 MEQ TAB PO SCH (08:15)
[2020-11-01] MEDS ORDERED: Potassium Chloride 10 MEQ in Premix Bag 1 BAG IVPB SCH ×2 (08:45→12:30)
--- NOTE | 2020-11-01 11:32 | PDOC.HOSPP ---
- Subjective Encounter Date: 11/01/20 Encounter Time: 08:30 Subjective: Patient seen and examined. No new complaints. No overnight events - Objective Vital Signs & Weight: Vital Signs (12 hours) Temp Pulse Resp BP BP Pulse Ox 11/01/20 08:26 97.5 F L 61 20 149/83 H 96 11/01/20 08:11 60 11/01/20 08:10 60 159/78 H 11/01/20 05:15 97.5 F L 54 L 18 136/81 93 L Weight Weight 175 lb I&O: 10/31/20 11/01/20 11/02/20 06:59 06:59 06:59 Intake Total 1400 Balance 1400 Result Diagrams: 11/01/20 05:57 11/01/20 05:57 Additional Labs: Accuchecks 11/01/20 10/31/20 10/31/20 04:51 19:21 16:40 POC Glucose 163 H 181 H 250 H 10/31/20 11:44 POC Glucose 159 H Hospitalist ROS - Review of Systems ENT: denies: ear pain, ear discharge, nose pain, nose discharge, nose conge stion, mouth pain, mouth swelling, throat pain, throat swelling, other Respiratory: denies: cough, dry, shortness of breath, hemoptysis, SOB with excertion, pleuritic pain, sputum, wheezing, other Cardiovascular: denies: chest pain, palpitations, orthopnea, paroxysmal noc. dyspnea, edema, light headedness, other Gastrointestinal: denies: nausea, vomiting, abdominal pain, diarrhea, constipation, melena, hematochezia, other Genitourinary: denies: dysuria, frequency, incontinence, hematuria, retention, other Musculoskeletal: denies: neck pain, shoulder pain, arm pain, back pain, hand pain, leg pain, foot pain, other Skin: denies: rash, lesions, ivette, bruising, other - Medication Medications: Active Medications Generic Name Dose Route Start Last Admin Trade Name Freq PRN Reason Stop Dose Admin Amlodipine Besylate 10 mg 10/31/20 09:00 11/01/20 08:10 Amlodipine 10 Mg Tab PO 10 mg DAILY LEONARDO Administration Cholecalciferol 5,000 units 10/31/20 09:00 11/01/20 08:10 Cholecalciferol 1,000 Units (25 Mcg) Tab PO 5,000 units DAILY LEONARDO Administration Digoxin 0.125 mg 10/31/20 09:00 11/01/20 08:11 Digoxin 0.125 Mg Tab PO 0.125 mg DAILY LEONARDO Administration Fluoxetine HCl 20 mg 10/31/20 09:00 11/01/20 08:11 Fluoxetine Hcl 20 Mg Cap PO 20 mg DAILY LEONARDO Administration Hydrochlorothiazide 25 mg 10/31/20 09:00 11/01/20 08:11 Hydrochlorothiazide 25 Mg Tab PO 25 mg DAILY LEONARDO Administration Hydroxychloroquine Sulfate 200 mg 10/31/20 09:00 11/01/20 08:11 Hydroxychloroquine Sulfate 200 Mg Tab PO 200 mg DAILY LEONARDO Administration Potassium Chloride/Sodium Chloride 1,000 ml in 1,000 mls @ 75 mls/hr 10/29/20 20:18 11/01/20 01:03 Ns 0.9% W/ 20 Meq Kcl IV 1,000 mls .[id number] LEONARDO Administration Insulin Human Lispro 0 units 10/29/20 20:18 10/31/20 16:52 Humalog 300 Units/3 Ml Vial SC 4 unit .MODERATE SLIDING SC PRN Administration Moderate Correctional Scale Insulin Human Lispro 0 units 10/29/20 20:18 10/30/20 20:52 Humalog 300 Units/3 Ml Vial SC 2 unit .BEDTIME SLIDING SC PRN Administration Bedtime Correctional Scale Loratadine 10 mg 10/31/20 09:00 11/01/20 08:11 Loratadine 10 Mg Tab PO 10 mg DAILY LEONARDO Administration Losartan Potassium 100 mg 10/31/20 09:00 11/01/20 08:10 Losartan 25 Mg Tab PO 100 mg DAILY LEONARDO Administration Melatonin 6 mg 10/30/20 21:00 10/31/20 20:20 Melatonin 3 Mg Tab PO 6 mg HS LEONARDO Administration Nebivolol 10 mg 10/30/20 21:00 11/01/20 08:11 Nebivolol Hcl 5 Mg Tab PO 10 mg BID LEONARDO Administration Pantoprazole Sodium 40 mg 10/30/20 09:00 11/01/20 08:11 Pantoprazole 40 Mg Tab PO 40 mg DAILY LEONARDO Administration Rosuvastatin Calcium 20 mg 10/30/20 21:00 10/31/20 20:20 Rosuvastatin 20 Mg Tab PO 20 mg QPM LEONARDO Administration Hospitalist Exam Vitals: Vital Signs (12 hours) Temp Pulse Resp BP BP Pulse Ox 11/01/20 08:26 97.5 F L 61 20 149/83 H 96 11/01/20 08:11 60 11/01/20 08:10 60 159/78 H 11/01/20 05:15 97.5 F L 54 L 18 136/81 93 L Weight Weight 175 lb General Appearance: NAD, awake alert Eye: scleral icterus ENT: normocephalic atraumatic, no oropharyngeal lesions Neck: supple, symmetric, no JVD, no thyromegaly Heart: RRR, no murmur, no gallops, no rubs Respiratory: no wheezes, no rales, no ronchi Gastrointestinal: soft, non-tender, non-distended, normal bowel sounds Gastrointestinal - other findings: Obesity noted Extremities: no cyanosis, no clubbing, no edema Skin: normal turgor, no lesions Neurological: no focal deficits Musculoskeletal: normal tone, normal strength Psychiatric: normal affect, normal behavior Hosp A/P (1) Lung metastases Code(s): C78.00 - SECONDARY MALIGNANT NEOPLASM OF UNSPECIFIED LUNG Status: Acute (2) Liver metastases Code(s): C78.7 - SECONDARY MALIG NEOPLASM OF LIVER AND INTRAHEPATIC BILE DUCT Status: Acute (3) Atrial fibrillation Code(s): I48.91 - UNSPECIFIED ATRIAL FIBRILLATION Status: Chronic Qualifiers: Atrial fibrillation type: paroxysmal Qualified Code(s): I48.0 - Paroxysmal atrial fibrillation (4) Barretts esophagus Code(s): K22.70 - GONZALEZ'S ESOPHAGUS WITHOUT DYSPLASIA Status: Chronic (5) Diabetes mellitus type 2 in nonobese Code(s): E11.9 - TYPE 2 DIABETES MELLITUS WITHOUT COMPLICATIONS Status: Chronic (6) Hyperlipidemia Code(s): E78.5 - HYPERLIPIDEMIA, UNSPECIFIED Status: Chronic (7) Hypertension Code(s): I10 - ESSENTIAL (PRIMARY) HYPERTENSION Status: Chronic (8) Obstructive sleep apnea Code(s): G47.33 - OBSTRUCTIVE SLEEP APNEA (ADULT) (PEDIATRIC) Status: Chronic (9) PVD (peripheral vascular disease) Code(s): I73.9 - PERIPHERAL VASCULAR DISEASE, UNSPECIFIED Status: Chronic - Plan old records reviewed/req, plan discussed w/ family Gastroenterology recommendation appreciated, Patient was plan for liver biopsy this morning, radiology not planning to do a biopsy because of aspirin use and Lovenox was given yesterday, based on radiology recommendation we have to wait for 2 or 3 days to get liver biopsy done, After this I spoke with the patient and family member, discussed with the option of mediastinoscopy and CV surgery consultation but at this point family and patient prefers least invasive approach, I have discussed with them as well that sometimes liver biopsy may be limited and result may be inconclusive in that case she will eventually need media stinoscopy, they expressed understanding, I have discussed with them about going home and come back on Thursday as an outpatient basis for liver biopsy but patient and family member wanted to stay in hospital until done, I have replace potassium chloride 20 mEq IV and 40 p.o. and I will repeat potas sium level later on today and replace if needed, Oncology following and Gastroenterology following
--- NOTE | 2020-11-01 14:24 | CON ---
DATE OF CONSULTATION: 10/31/2020 REASON FOR CONSULTATION: Liver lesions. HISTORY OF PRESENT ILLNESS: Ms. Zhao is an 80-year-old female with a history of fatty liver disease, managed by Dr. Quiroz. She had some routine workup, which showed significant elevation in her bilirubin, so she was sent to the emergency room for evaluation. Once here, she underwent an abdominal and pelvis CT, which showed pulmonary and liver metastatic disease. She had small bilateral pleural effusions with cardiomegaly. There was a sclerotic lesion in L1. She underwent a nuclear bone scan, which showed increased uptake in the left sacrum, she had intake in the T9-T10, which confirmed degenerative changes. Her abdominal MRI once again confirmed multiple metastatic lesions. GI saw the patient as she does not need an MRCP as she likely has obstructive lesion in the liver. Liver biopsy has been ordered. PAST MEDICAL HISTORY: 1. Sleep apnea. 2. Diabetes. 3. Hypertension. 4. Hyperlipidemia. 5. Peripheral vascular disease. 6. Atrial fibrillation. PAST SURGICAL HISTORY: 1. Femoral endarterectomy. 2. Carotid endarterectomy. ALLERGIES: NO KNOWN DRUG ALLERGIES. HOME MEDICATIONS: 1. Amlodipine. 2. Bystolic. 3. CoQ10. 4. Multivitamin. 5. Crestor. 6. Ecotrin. 7. Eliquis. 8. [place]-3. 9. Prozac. 10. Hydrochlorothiazide. 11. Iron. 12. Lanoxin. 13. Magnesium. 14. Protonix. 15. Plaquenil. 16. Telmisartan. 17. Insulin. 18. B12. FAMILY HISTORY: No history in the immediate family. SOCIAL HISTORY: An 61-blmc-hepn history of smoking, quit 20 years ago. No alcohol or illicit drug use. REVIEW OF SYSTEMS: A 10-point review of systems is negative. PHYSICAL EXAMINATION: VITAL SIGNS: Temperature 97.9, pulse is 63, respiratory rate 22, blood pressure is 143/78, and she is 94% on room air. GENERAL: This is a jaundiced female, in no acute distress. HEENT: Normocephalic and atraumatic. NECK: Supple. CV: Regular rate and rhythm. LUNGS: She has expiratory wheeze. ABDOMEN: Distended. Bowel sounds are positive. EXTREMITIES: No clubbing or cyanosis. SKIN: Yellow. NEUROLOGIC: Nonfocal. PERTINENT LABORATORY DATA AND X-RAYS: WBCs are 10, hemoglobin 14.6, hematocrit 43.3, platelet count is 136,000, 82% neutrophils, and 6% lymphocytes. PT is 15.4, INR is 1.2, and PTT is 28.1. Sodium 135, potassium 3.5, chloride 96, CO2 is 28, BUN is 24, creatinine 0.7, and calcium 7.7. Bilirubin is 15.3, AST is 195, ALT is 231, and alkaline phosphatase is 545. BNP is 696. Serum total protein is 5.9, albumin 3.2, and globulin 2.7. AFP is 4.3, CEA is 9, and CA-125 is 1674. COVID PCR negative. Radiology per HPI. ASSESSMENT: 1. Metastatic disease involving liver and the lung. 2. Remote history of smoking. 3. Jaundice, likely secondary to obstructive lesions in the liver. 4. Atrial fibrillation, on anticoagulation. DISCUSSION: The patient's anticoagulation has been held. Plan is for a biopsy of her liver. She has seen Dr. Gonzalez in the past. We will ask for his opinion regarding her lungs. This was explained in detail to the family. We will return once the diagnosis has been confirmed with recommendations. Thank you for the consult. Job ID: [id number]
[2020-11-01 15:33] LABS: Potassium 3.2 mmol/L (3.5-5.1)
--- NOTE | 2020-11-01 17:10 | PRG ---
DATE OF SERVICE: 11/01/2020 REASON FOR CONSULTATION: Abnormal GI imaging showing probable metastatic disease of the liver. SUBJECTIVE: Today, the patient states she is doing well with no acute events or problems overnight. She has been able to tolerate a solid diet without difficulty. She denies any symptoms at the current point in time. She also denies any nausea, vomiting, fevers, chills, hematemesis, melena, or hematochezia. She has however noticed that her urine coloration is much darker/maroon in coloration, but no pain with urination. OBJECTIVE: VITAL SIGNS: Temperature 98.1, pulse 67, blood pressure 148/74, respiratory rate 20, saturating 95% on room air. GENERAL: The patient was sitting in a chair at bedside, in no acute distress. Alert and oriented x4. CARDIOVASCULAR: Regular rate and rhythm. 3/6 systolic murmur best heard at the left upper sternal border. RESPIRATORY: Clear to auscultation bilaterally. ABDOMEN: Normoactive bowel sounds. Soft, nontender, nondistended. EXTREMITIES: No cyanosis, clubbing, or edema. LABORATORY DATA: CBC with a white blood cell count of 9.7, hemoglobin 13.7, hematocrit 39.2, platelets 130. Chemistry with a sodium of 141, potassium 2.2, chloride 98, CO2 of 35, BUN 19, creatinine 0.74, glucose 159. AST 87, ALT 143, alkaline phosphatase 450, total bilirubin 11.2. CA-125 of 1674. IMAGING DATA: No current GI imaging is available for review. ASSESSMENT AND PLAN: The patient is an 80-year-old female with past medical history of nonalcoholic fatty liver disease, now presenting with elevated LFTs and imaging consistent with metastatic disease with probable liver primary (but unclear at this time). Metastatic disease. The patient is presenting with progressively worsening fatigue and weakness for the last 1 to 2 months and associated with an unintentional weight loss of approximately 15 pounds. On admission in the ER, she was noted to be severely hypokalemic in addition to imaging findings showing the presence of metastatic disease in the liver, lung, and bone. At this time, the origin of her metastatic disease is largely unknown with the patient scheduled for CT-guided liver biopsy for further evaluation; however, the patient had been on anticoagulation as an outpatient and was ultimately placed on anticoagulation here in-house that needs to be stopped for approximately 48 hours prior to proceeding with a CT-guided biopsy and plans to proceed with a biopsy on Thursday morning. RECOMMENDATIONS: 1. Agree with proceeding with liver biopsy on Thursday for further evaluation of her metastatic disease. 2. Endoscopic management/evaluation. This is not likely to yield a contributing diagnosis given her recent esophagogastroduodenoscopy one year ago and colonoscopy 7 years ago with fairly normal findings. 3. Pain control per primary team. 4. Would hold all anticoagulation for the time being in anticipation of the CT-guided biopsy. 5. Would defer to the Oncology Service for management of her metastatic disease. 6. If the patient does decide to proceed with treatment related to her metastatic disease, placement of a biliary stent will likely not be helpful given the normal caliber of the common bile/common hepatic duct and innumerable liver masses likely creating intrahepatic cholestasis. We will continue to follow peripherally for now. Please call with any questions. Job ID: [id number] [id number]
[2020-11-01] MEDS: HumaLOG 300 UNITS/3 ML VIAL SC PRN (17:48)
[2020-11-01] MEDS: Rosuvastatin 20 MG TAB PO SCH (19:59)
[2020-11-01] MEDS: Melatonin 3 MG TAB PO SCH (19:59)
[2020-11-02] MEDS: NS 0.9% w/ 20 MEQ KCL 1,000 ML/1,000 ML BAG IV SCH (04:00)
[2020-11-02] MEDS: HumaLOG 300 UNITS/3 ML VIAL SC PRN ×4 (05:20→21:15)
[2020-11-02] MEDS ORDERED: Potassium Chloride 20 MEQ TAB PO SCH (08:00)
[2020-11-02] MEDS: Hydrochlorothiazide 25 MG TAB PO SCH (09:00)
[2020-11-02] MEDS: FLUoxetine HCl 20 MG CAP PO SCH (09:01)
[2020-11-02] MEDS: Digoxin 0.125 MG TAB PO SCH (09:01)
[2020-11-02] MEDS: Cholecalciferol 1,000 UNITS (25 MCG) TAB PO SCH (09:05)
[2020-11-02] MEDS: Amlodipine 10 MG TAB PO SCH (09:06)
[2020-11-02] MEDS: Losartan 25 MG TAB PO SCH (09:06)
[2020-11-02] MEDS: Nebivolol HCl 5 MG TAB PO SCH ×2 (09:07→21:13)
[2020-11-02] MEDS: Loratadine 10 MG TAB PO SCH (09:07)
[2020-11-02] MEDS ORDERED: ALPRAZolam 0.25 MG TAB PO PRN (11:02)
--- NOTE | 2020-11-02 11:03 | PDOC.HOSPP ---
- Subjective Encounter Date: 11/02/20 Encounter Time: 08:35 Subjective: Patient seen and examined. No new complaints. No overnight events, patient reports that since the diagnosis of metastasis he is anxious - Objective Vital Signs & Weight: Vital Signs (12 hours) Temp Pulse Resp BP Pulse Ox 11/02/20 09:06 63 11/02/20 09:01 63 11/02/20 08:00 96 11/02/20 07:00 98.1 F 51 L 20 135/80 96 Weight Weight 175 lb I&O: 11/01/20 11/02/20 11/03/20 06:59 06:59 06:59 Intake Total 3160 Balance 3160 Result Diagrams: 11/01/20 05:57 11/01/20 15:11 Additional Labs: Accuchecks 11/02/20 11/01/20 11/01/20 04:25 19:23 16:51 POC Glucose 255 H 213 H 237 H 11/01/20 11:26 POC Glucose 141 H Hospitalist ROS - Review of Systems Constitutional: reports: weakness. denies: fever, chills, sweats, malaise, other ENT: denies: ear pain, ear discharge, nose pain, nose discharge, nose congestion, mouth pain, mouth swelling, throat pain, throat swelling, other Respiratory: denies: cough, dry, shortness of breath, hemoptysis, SOB with excertion, pleuritic pain, sputum, wheezing, other Cardiovascular: denies: chest pain, palpitations, orthopnea, paroxysmal noc. dyspnea, edema, light headedness, other Gastrointestinal: denies: nausea, vomiting, abdominal pain, diarrhea, constipa tion, melena, hematochezia, other Genitourinary: denies: dysuria, frequency, incontinence, hematuria, retention, other Musculoskeletal: denies: neck pain, shoulder pain, arm pain, back pain, hand pain, leg pain, foot pain, other - Medication Medications: Active Medications Generic Name Dose Route Start Last Admin Trade Name Freq PRN Reason Stop Dose Admin Amlodipine Besylate 10 mg 10/31/20 09:00 11/02/20 09:06 Amlodipine 10 Mg Tab PO 10 mg DAILY LEONARDO Administration Cholecalciferol 5,000 units 10/31/20 09:00 11/02/20 09:05 Cholecalciferol 1,000 Units (25 Mcg) Tab PO 5,000 units DAILY LEONARDO Administration Digoxin 0.125 mg 10/31/20 09:00 11/02/20 09:01 Digoxin 0.125 Mg Tab PO 0.125 mg DAILY LEONARDO Administration Fluoxetine HCl 20 mg 10/31/20 09:00 11/02/20 09:01 Fluoxetine Hcl 20 Mg Cap PO 20 mg DAILY LEONARDO Administration Hydrochlorothiazide 25 mg 10/31/20 09:00 11/02/20 09:00 Hydrochlorothiazide 25 Mg Tab PO 25 mg DAILY LEONARDO Administration Hydroxychloroquine Sulfate 200 mg 10/31/20 09:00 11/01/20 08:11 Hydroxychloroquine Sulfate 200 Mg Tab PO 200 mg DAILY LEONARDO Administration Insulin Human Lispro 0 units 10/29/20 20:18 11/02/20 05:20 Humalog 300 Units/3 Ml Vial SC 6 unit .MODERATE SLIDING SC PRN Administration Moderate Correctional Scale Insulin Human Lispro 0 units 10/29/20 20:18 10/30/20 20:52 Humalog 300 Units/3 Ml Vial SC 2 unit .BEDTIME SLIDING SC PRN Administration Bedtime Correctional Scale Loratadine 10 mg 10/31/20 09:00 11/02/20 09:07 Loratadine 10 Mg Tab PO 10 mg DAILY LEONARDO Administration Losartan Potassium 100 mg 10/31/20 09:00 11/02/20 09:06 Losartan 25 Mg Tab PO 100 mg DAILY LEONARDO Administration Melatonin 6 mg 10/30/20 21:00 11/01/20 19:59 Melatonin 3 Mg Tab PO 6 mg HS LEONARDO Administration Nebivolol 10 mg 10/30/20 21:00 11/02/20 09:07 Nebivolol Hcl 5 Mg Tab PO 10 mg BID LEONARDO Administration Pantoprazole Sodium 40 mg 10/30/20 09:00 11/02/20 09:05 Pantoprazole 40 Mg Tab PO 40 mg DAILY LEONARDO Administration Rosuvastatin Calcium 20 mg 10/30/20 21:00 11/01/20 19:59 Rosuvastatin 20 Mg Tab PO 20 mg QPM LEONARDO Administration Hospitalist Exam Vitals: Vital Signs (12 hours) Temp Pulse Resp BP Pulse Ox 11/02/20 09:06 63 11/02/20 09:01 63 11/02/20 08:00 96 11/02/20 07:00 98.1 F 51 L 20 135/80 96 Weight Weight 175 lb General Appearance: NAD, awake alert Eye: PERRL, scleral icterus ENT: normocephalic atraumatic, no oropharyngeal lesions Neck: supple, symmetric, no JVD, no thyromegaly Heart: RRR, no murmur, no gallops, no rubs Respiratory: no wheezes, no rales, no ronchi Gastrointestinal: soft, non-tender, non-distended, normal bowel sounds Extremities: no cyanosis, no clubbing, no edema Skin: normal turgor, no lesions Neurological: no focal deficits Musculoskeletal: normal tone, normal strength Psychiatric: normal affect, normal behavior Hosp A/P (1) Lung metastases Code(s): C78.00 - SECONDARY MALIGNANT NEOPLASM OF UNSPECIFIED LUNG Status: Acute (2) Liver metastases Code(s): C78.7 - SECONDARY MALIG NEOPLASM OF LIVER AND INTRAHEPATIC BILE DUCT Status: Acute (3) Atrial fibrillation Code(s): I48.91 - UNSPECIFIED ATRIAL FIBRILLATION Status: Chronic Qualifiers: Atrial fibrillation type: paroxysmal Qualified Code(s): I48.0 - Paroxysmal atrial fibrillation (4) Barretts esophagus Code(s): K22.70 - GONZALEZ'S ESOPHAGUS WITHOUT DYSPLASIA Status: Chronic (5) Diabetes mellitus type 2 in nonobese Code(s): E11.9 - TYPE 2 DIABETES MELLITUS WITHOUT COMPLICATIONS Status: Chronic (6) Hyperlipidemia Code(s): E78.5 - HYPERLIPIDEMIA, UNSPECIFIED Status: Chronic (7) Hypertension Code(s): I10 - ESSENTIAL (PRIMARY) HYPERTENSION Status: Chronic (8) Obstructive sleep apnea Code(s): G47.33 - OBSTRUCTIVE SLEEP APNEA (ADULT) (PEDIATRIC) Status: Chronic (9) PVD (peripheral vascular disease) Code(s): I73.9 - PERIPHERAL VASCULAR DISEASE, UNSPECIFIED Status: Chronic - Plan old records reviewed/req, PT/OT Because of aspirin use and Lovenox, patient will get liver biopsy on Thursday, Today we will replace potassium chloride 40 mill EQ p.o. one-time dose, Discontinue IV fluid today Start physical therapy Add Xanax 0.25 mg 3 times daily as needed for anxiety Medication reviewed and continue provide symptomatic and supportive care Tomorrow we will repeat labs including digoxin level
[2020-11-02] MEDS: Hydroxychloroquine Sulfate 200 MG TAB PO SCH (11:12)
[2020-11-02] MEDS: Melatonin 3 MG TAB PO SCH (21:13)
[2020-11-02] MEDS: Rosuvastatin 20 MG TAB PO SCH (21:14)
[2020-11-03 06:01] LABS: ALT (SGPT) 142 U/L (8-55); AST (SGOT) 85 U/L (5-34); Albumin 2.6 g/dL (3.4-4.8); Alkaline Phosphatase 485 U/L (40-110); Anion Gap 13 mmol/L (10-20); BUN (Urea Nitrogen) 26 mg/dL (9.8-20.1); Bilirubin, Total 13.3 mg/dL (0.2-1.2); Calc. Creatinine Clearance 88 mL/min (70-130); Calcium 7.7 mg/dL (7.8-10.44); Carbon Dioxide 30 mmol/L (23-31); Chloride 100 mmol/L (98-107); Globulin 2.3 g/dL (2.4-3.5); Glucose 254 mg/dL (83-110); Protein, Total 4.9 g/dL (5.8-8.1); Sodium 141 mmol/L (136-145)
[2020-11-03 06:06] LABS: #Lymphocytes 0.4 thou/uL (1.20-3.40); #Monocytes 0.6 thou/uL (0.11-0.59); #Neutrophils 8.6 thou/uL (1.40-6.50); %Basophils 0.4 % (0.0-1.0); %Eosinophils 0.1 % (0.0-10.0); %Lymphocytes 4.2 % (21.0-51.0); %Monocytes 5.8 % (0.0-10.0); %Neutrophils 89.5 % (42.0-75.0); Hemoglobin 12.9 g/dL (12.0-16.0); Mean Corpuscular HGB CONC 33.4 g/dL (32.0-36.0); Mean Corpuscular Hemoglobin 32.2 pg (27.0-31.0); Mean Corpuscular Volume 96.4 fL (78.0-98.0); Mean Platelet Volume 9.6 fL (7.4-10.4); Platelet Count 126 thou/uL (130-400); White Blood Cell (WBC) Count 9.6 thou/uL (4.8-10.8)
[2020-11-03 06:09] LABS: Potassium 2.4 mmol/L (3.5-5.1)
[2020-11-03 06:35] LABS: Digoxin 0.35 ng/mL (0.8-2.0)
[2020-11-03] MEDS ORDERED: Potassium Chloride 40 MEQ in Sodium Chloride 0.9% 250 ML 250 ML IVPB SCH (06:45)
[2020-11-03] MEDS ORDERED: Potassium Chloride 20 MEQ TAB PO SCH (07:45)
[2020-11-03 08:03] LABS: Phosphorus 1.4 mg/dL (2.3-4.7)
[2020-11-03] MEDS ORDERED: Potassium Phosphate 15 MMOL in Sodium Chloride 0.9% 250 ML 250 ML IVPB SCH (08:15)
--- NOTE | 2020-11-03 09:52 | PDOC.HOSPP ---
- Subjective Encounter Date: 11/03/20 Encounter Time: 08:30 Subjective: Patient seen and examined. No new complaints. No overnight events, patient is using 14 cm of water pressure of with the CPAP, patient reports that she wanted to increase pressure for CPAP - Objective Vital Signs & Weight: Vital Signs (12 hours) Temp Pulse Resp BP Pulse Ox 11/03/20 06:55 97.6 F 61 19 129/69 91 L 11/03/20 05:00 97.7 F 60 18 152/89 H 92 L 11/03/20 00:50 94 L 11/03/20 00:43 97.8 F 60 18 143/80 H 95 Weight Weight 175 lb I&O: 11/02/20 11/03/20 11/04/20 06:59 06:59 06:59 Intake Total 3160 Balance 3160 Result Diagrams: 11/03/20 05:22 11/03/20 05:22 Additional Labs: Accuchecks 11/03/20 11/02/20 11/02/20 04:22 19:28 16:15 POC Glucose 242 H 214 H 271 H 11/02/20 11:14 POC Glucose 216 H Hospitalist ROS - Review of Systems ENT: denies: ear pain, ear discharge, nose pain, nose discharge, nose congestion, mouth pain, mouth swelling, throat pain, throat swelling, other Respiratory: denies: cough, dry, shortness of breath, hemoptysis, SOB with exc ertion, pleuritic pain, sputum, wheezing, other Cardiovascular: denies: chest pain, palpitations, orthopnea, paroxysmal noc. dyspnea, edema, light headedness, other Gastrointestinal: denies: nausea, vomiting, abdominal pain, diarrhea, constipation, melena, hematochezia, other Genitourinary: denies: dysuria, frequency, incontinence, hematuria, retention, other Musculoskeletal: denies: neck pain, shoulder pain, arm pain, back pain, hand pain, leg pain, foot pain, other - Medication Medications: Active Medications Generic Name Dose Route Start Last Admin Trade Name Freq PRN Reason Stop Dose Admin Amlodipine Besylate 10 mg 10/31/20 09:00 11/02/20 09:06 Amlodipine 10 Mg Tab PO 10 mg DAILY LEONARDO Administration Cholecalciferol 5,000 units 10/31/20 09:00 11/02/20 09:05 Cholecalciferol 1,000 Units (25 Mcg) Tab PO 5,000 units DAILY LEONARDO Administration Digoxin 0.125 mg 10/31/20 09:00 11/02/20 09:01 Digoxin 0.125 Mg Tab PO 0.125 mg DAILY LEONARDO Administration Fluoxetine HCl 20 mg 10/31/20 09:00 11/02/20 09:01 Fluoxetine Hcl 20 Mg Cap PO 20 mg DAILY LEONARDO Administration Hydroxychloroquine Sulfate 200 mg 10/31/20 09:00 11/02/20 11:12 Hydroxychloroquine Sulfate 200 Mg Tab PO 200 mg DAILY LEONARDO Administration Potassium Chloride 40 meq/ 270 mls @ 67.5 mls/hr 11/03/20 06:45 11/03/20 07:11 Sodium Chloride IVPB 11/03/20 10:44 270 mls NOW LEONARDO Administration Insulin Human Lispro 0 units 10/29/20 20:18 11/02/20 17:19 Humalog 300 Units/3 Ml Vial SC 6 unit .MODERATE SLIDING SC PRN Administration Moderate Correctional Scale Insulin Human Lispro 0 units 10/29/20 20:18 11/02/20 21:15 Humalog 300 Units/3 Ml Vial SC 2 unit .BEDTIME SLIDING SC PRN Administration Bedtime Correctional Scale Loratadine 10 mg 10/31/20 09:00 11/02/20 09:07 Loratadine 10 Mg Tab PO 10 mg DAILY LEONARDO Administration Losartan Potassium 100 mg 10/31/20 09:00 11/02/20 09:06 Losartan 25 Mg Tab PO 100 mg DAILY LEONARDO Administration Melatonin 6 mg 10/30/20 21:00 11/02/20 21:13 Melatonin 3 Mg Tab PO 6 mg HS LEONARDO Administration Nebivolol 10 mg 10/30/20 21:00 11/02/20 21:13 Nebivolol Hcl 5 Mg Tab PO 10 mg BID LEONARDO Administration Pantoprazole Sodium 40 mg 10/30/20 09:00 11/02/20 09:05 Pantoprazole 40 Mg Tab PO 40 mg DAILY LEONARDO Administration Rosuvastatin Calcium 20 mg 10/30/20 21:00 11/02/20 21:14 Rosuvastatin 20 Mg Tab PO 20 mg QPM LEONARDO Administration Hospitalist Exam Vitals: Vital Signs (12 hours) Temp Pulse Resp BP Pulse Ox 11/03/20 06:55 97.6 F 61 19 129/69 91 L 11/03/20 05:00 97.7 F 60 18 152/89 H 92 L 11/03/20 00:50 94 L 11/03/20 00:43 97.8 F 60 18 143/80 H 95 Weight Weight 175 lb General Appearance: NAD, awake alert Eye: PERRL, scleral icterus ENT: normocephalic atraumatic, no oropharyngeal lesions Neck: supple, symmetric, no JVD, no thyromegaly Heart: RRR, no murmur, no gallops, no rubs Respiratory: no wheezes, no rales, no ronchi Gastrointestinal: soft, non-tender, non-distended, normal bowel sounds Gastrointestinal - other findings: Obesity noted Extremities: no clubbing, no edema Skin: normal turgor, no lesions Neurological: no focal deficits Musculoskeletal: normal tone, normal strength Psychiatric: normal affect, normal behavior Hosp A/P (1) Lung metastases Code(s): C78.00 - SECONDARY MALIGNANT NEOPLASM OF UNSPECIFIED LUNG Status: Acute (2) Liver metastases Code(s): C78.7 - SECONDARY MALIG NEOPLASM OF LIVER AND INTRAHEPATIC BILE DUCT Status: Acute (3) Atrial fibrillation Code(s): I48.91 - UNSPECIFIED ATRIAL FIBRILLATION Status: Chronic Qualifiers: Atrial fibrillation type: paroxysmal Qualified Code(s): I48.0 - Paroxysmal atrial fibrillation (4) Barretts esophagus Code(s): K22.70 - GONZALEZ'S ESOPHAGUS WITHOUT DYSPLASIA Status: Chronic (5) Diabetes mellitus type 2 in nonobese Code(s): E11.9 - TYPE 2 DIABETES MELLITUS WITHOUT COMPLICATIONS Status: Chronic (6) Hyperlipidemia Code(s): E78.5 - HYPERLIPIDEMIA, UNSPECIFIED Status: Chronic (7) Hypertension Code(s): I10 - ESSENTIAL (PRIMARY) HYPERTENSION Status: Chronic (8) Obstructive sleep apnea Code(s): G47.33 - OBSTRUCTIVE SLEEP APNEA (ADULT) (PEDIATRIC) Status: Chronic (9) PVD (peripheral vascular disease) Code(s): I73.9 - PERIPHERAL VASCULAR DISEASE, UNSPECIFIED Status: Chronic (10) Hypokalemia Code(s): E87.6 - HYPOKALEMIA Status: Acute (11) Hyperbilirubinemia Code(s): E80.6 - OTHER DISORDERS OF BILIRUBIN METABOLISM Status: Acute (12) Hypophosphatemia Code(s): E83.39 - OTHER DISORDERS OF PHOSPHORUS METABOLISM Status: Acute - Plan old records reviewed/req Patient is receiving potassium chloride 40 mEq IV one-time dose, additional potassium chloride 40 p.o. ordered, We will also replace potassium phosphate 15 mmol IV one-time dose and repeat potassium level later on today Discontinue hydrochlorothiazide Medication reviewed and continue provide symptomatic and supportive care We will repeat labs tomorrow
[2020-11-03] MEDS: Insulin Glargine 30 UNITS in Pre-Filled Syringe 1 EACH SC SCH (10:15)
[2020-11-03] MEDS: Hydroxychloroquine Sulfate 200 MG TAB PO SCH (10:16)
[2020-11-03] MEDS: Cholecalciferol 1,000 UNITS (25 MCG) TAB PO SCH (10:16)
[2020-11-03] MEDS: Loratadine 10 MG TAB PO SCH (10:16)
[2020-11-03] MEDS: FLUoxetine HCl 20 MG CAP PO SCH (10:16)
[2020-11-03] MEDS: Digoxin 0.125 MG TAB PO SCH (10:16)
[2020-11-03] MEDS: Losartan 25 MG TAB PO SCH (10:16)
[2020-11-03] MEDS: Amlodipine 10 MG TAB PO SCH (10:17)
[2020-11-03] MEDS: Nebivolol HCl 5 MG TAB PO SCH ×2 (10:17→20:47)
[2020-11-03] MEDS: HumaLOG 300 UNITS/3 ML VIAL SC PRN ×2 (13:02→18:09)
[2020-11-03] MEDS: Rosuvastatin 20 MG TAB PO SCH (20:48)
[2020-11-03] MEDS: Melatonin 3 MG TAB PO SCH (20:48)
[2020-11-04 07:55] LABS: ALT (SGPT) 147 U/L (8-55); AST (SGOT) 92 U/L (5-34); Albumin 2.7 g/dL (3.4-4.8); Alkaline Phosphatase 504 U/L (40-110); Anion Gap 12 mmol/L (10-20); BUN (Urea Nitrogen) 24 mg/dL (9.8-20.1); Bilirubin, Total 14.6 mg/dL (0.2-1.2); Calc. Creatinine Clearance 84 mL/min (70-130); Calcium 7.5 mg/dL (7.8-10.44); Carbon Dioxide 34 mmol/L (23-31); Chloride 102 mmol/L (98-107); Globulin 2.1 g/dL (2.4-3.5); Glucose 221 mg/dL (83-110); Protein, Total 4.8 g/dL (5.8-8.1); Sodium 145 mmol/L (136-145)
[2020-11-04 07:59] LABS: Potassium 2.6 mmol/L (3.5-5.1)
[2020-11-04] MEDS: Digoxin 0.125 MG TAB PO SCH (09:07)
[2020-11-04] MEDS: Insulin Glargine 30 UNITS in Pre-Filled Syringe 1 EACH SC SCH (09:07)
[2020-11-04] MEDS: Nebivolol HCl 5 MG TAB PO SCH ×2 (09:08→21:15)
[2020-11-04] MEDS: Hydroxychloroquine Sulfate 200 MG TAB PO SCH (09:08)
[2020-11-04] MEDS: Potassium Chloride 20 MEQ TAB PO SCH ×2 (09:08→17:52)
[2020-11-04] MEDS: Cholecalciferol 1,000 UNITS (25 MCG) TAB PO SCH (09:08)
[2020-11-04] MEDS: Amlodipine 10 MG TAB PO SCH (09:08)
[2020-11-04] MEDS: Loratadine 10 MG TAB PO SCH (09:08)
[2020-11-04] MEDS: Losartan 25 MG TAB PO SCH (09:09)
[2020-11-04] MEDS: FLUoxetine HCl 20 MG CAP PO SCH (09:09)
[2020-11-04] MEDS: Potassium Chloride 10 MEQ in Premix Bag 1 BAG IVPB SCH ×4 (09:09→17:52)
--- NOTE | 2020-11-04 09:40 | PDOC.HOSPP ---
- Subjective Encounter Date: 11/04/20 Encounter Time: 08:00 Subjective: Patient seen and examined. No new complaints. No overnight events - Objective Vital Signs & Weight: Vital Signs (12 hours) Temp Pulse Resp BP BP Pulse Ox 11/04/20 07:05 97.8 F 56 L 18 152/81 H 90 L 11/04/20 04:50 98.2 F 58 L 17 154/73 H 90 L Weight Weight 175 lb Result Diagrams: 11/03/20 05:22 11/04/20 07:20 Additional Labs: Accuchecks 11/04/20 11/03/20 11/03/20 04:36 19:32 11:44 POC Glucose 247 H 169 H 239 H Hospitalist ROS - Review of Systems ENT: denies: ear pain, ear discharge, nose pain, nose discharge, nose congestion, mouth pain, mouth swelling, throat pain, throat swelling, other Respiratory: denies: cough, dry, shortness of breath, hemoptysis, SOB with excertion, pleuritic pain, sputum, wheezing, other Cardiovascular: denies: chest pain, palpitations, orthopnea, paroxysmal noc. dyspnea, edema, light headedness, other Gastrointestinal: denies: nausea, vomiting, abdominal pain, diarrhea, constipation, melena, hematochezia, other Genitourinary: denies: dysuria, frequency, incontinence, hematuria, retention, other Musculoskeletal: denies: neck pain, shoulder pain, arm pain, back pain, hand pain, leg pain, foot pain, other - Medication Medications: Active Medications Generic Name Dose Route Start Last Admin Trade Name Freq PRN Reason Stop Dose Admin Amlodipine Besylate 10 mg 10/31/20 09:00 11/03/20 10:17 Amlodipine 10 Mg Tab PO 10 mg DAILY LEONARDO Administration Cholecalciferol 5,000 units 10/31/20 09:00 11/03/20 10:16 Cholecalciferol 1,000 Units (25 Mcg) Tab PO 5,000 units DAILY LEONARDO Administration Digoxin 0.125 mg 10/31/20 09:00 11/03/20 10:16 Digoxin 0.125 Mg Tab PO 0.125 mg DAILY LEONARDO Administration Fluoxetine HCl 20 mg 10/31/20 09:00 11/03/20 10:16 Fluoxetine Hcl 20 Mg Cap PO 20 mg DAILY LEONARDO Administration Hydroxychloroquine Sulfate 200 mg 10/31/20 09:00 11/03/20 10:16 Hydroxychloroquine Sulfate 200 Mg Tab PO 200 mg DAILY LEONARDO Administration Insulin Glargine 30 units/ 0.3 mls @ 0 mls/hr 11/03/20 09:00 11/03/20 10:15 Miscellaneous Medication SC 0.3 mls QAM LEONARDO Administration Insulin Human Lispro 0 units 10/29/20 20:18 11/03/20 18:09 Humalog 300 Units/3 Ml Vial SC 4 unit .MODERATE SLIDING SC PRN Administration Moderate Correctional Scale Insulin Human Lispro 0 units 10/29/20 20:18 11/02/20 21:15 Humalog 300 Units/3 Ml Vial SC 2 unit .BEDTIME SLIDING SC PRN Administration Bedtime Correctional Scale Loratadine 10 mg 10/31/20 09:00 11/03/20 10:16 Loratadine 10 Mg Tab PO 10 mg DAILY LEONARDO Administration Losartan Potassium 100 mg 10/31/20 09:00 11/03/20 10:16 Losartan 25 Mg Tab PO 100 mg DAILY LEONARDO Administration Melatonin 6 mg 10/30/20 21:00 11/03/20 20:48 Melatonin 3 Mg Tab PO 6 mg HS LEONARDO Administration Nebivolol 10 mg 10/30/20 21:00 11/03/20 20:47 Nebivolol Hcl 5 Mg Tab PO 10 mg BID LEONARDO Administration Pantoprazole Sodium 40 mg 10/30/20 09:00 11/03/20 10:16 Pantoprazole 40 Mg Tab PO 40 mg DAILY LEONARDO Administration Rosuvastatin Calcium 20 mg 10/30/20 21:00 11/03/20 20:48 Rosuvastatin 20 Mg Tab PO 20 mg QPM LEONARDO Administration Hospitalist Exam Vitals: Vital Signs (12 hours) Temp Pulse Resp BP BP Pulse Ox 11/04/20 07:05 97.8 F 56 L 18 152/81 H 90 L 11/04/20 04:50 98.2 F 58 L 17 154/73 H 90 L Weight Weight 175 lb General Appearance: NAD, awake alert Eye: PERRL, scleral icterus ENT: normocephalic atraumatic, no oropharyngeal lesions Neck: supple, symmetric, no JVD, no thyromegaly Heart: RRR, no murmur, no gallops, no rubs Respiratory: no wheezes, no rales, no ronchi Gastrointestinal: soft, non-tender, non-distended, normal bowel sounds Extremities: no cyanosis, no clubbing, no edema Skin: normal turgor, no lesions Neurological: no focal deficits Musculoskeletal: normal tone, normal strength Psychiatric: normal affect, normal behavior Hosp A/P (1) Lung metastases Code(s): C78.00 - SECONDARY MALIGNANT NEOPLASM OF UNSPECIFIED LUNG Status: Acute (2) Liver metastases Code(s): C78.7 - SECONDARY MALIG NEOPLASM OF LIVER AND INTRAHEPATIC BILE DUCT Status: Acute (3) Atrial fibrillation Code(s): I48.91 - UNSPECIFIED ATRIAL FIBRILLATION Status: Chronic Qualifiers: Atrial fibrillation type: paroxysmal Qualified Code(s): I48.0 - Paroxysmal atrial fibrillation (4) Barretts esophagus Code(s): K22.70 - GONZALEZ'S ESOPHAGUS WITHOUT DYSPLASIA Status: Chronic (5) Diabetes mellitus type 2 in nonobese Code(s): E11.9 - TYPE 2 DIABETES MELLITUS WITHOUT COMPLICATIONS Status: Chronic (6) Hyperlipidemia Code(s): E78.5 - HYPERLIPIDEMIA, UNSPECIFIED Status: Chronic (7) Hypertension Code(s): I10 - ESSENTIAL (PRIMARY) HYPERTENSION Status: Chronic (8) Obstructive sleep apnea Code(s): G47.33 - OBSTRUCTIVE SLEEP APNEA (ADULT) (PEDIATRIC) Status: Chronic (9) PVD (peripheral vascular disease) Code(s): I73.9 - PERIPHERAL VASCULAR DISEASE, UNSPECIFIED Status: Chronic (10) Hypokalemia Code(s): E87.6 - HYPOKALEMIA Status: Acute (11) Hyperbilirubinemia Code(s): E80.6 - OTHER DISORDERS OF BILIRUBIN METABOLISM Status: Acute (12) Hypophosphatemia Code(s): E83.39 - OTHER DISORDERS OF PHOSPHORUS METABOLISM Status: Acute - Plan old records reviewed/req Today we will replace potassium chloride 40 M EQ p.o. twice daily orally and 10 mEq IV 4 doses and will recheck potassium level around 4 PM and if level is still low then will replace accordingly We will keep her n.p.o. after midnight, will schedule liver biopsy tomorrow We will repeat labs tomorrow
--- NOTE | 2020-11-04 15:01 | PRG ---
DATE OF SERVICE: 11/04/2020 REASON FOR CONSULTATION: Abnormal GI imaging showing probable metastatic disease involving the liver. SUBJECTIVE: Today, the patient states that she is doing well with no acute events or problems overnight. She has been having some difficulty with her CPAP machine in maintaining an adequate pressure, but is otherwise doing well. Currently, she denies any nausea, vomiting, fevers, chills, hematemesis, melena, hematochezia, or abdominal pain. OBJECTIVE: VITAL SIGNS: Temperature 98.2, pulse 65, blood pressure 154/74, respiratory rate 18, saturating 92% on room air. GENERAL: The patient was lying in bed, in no acute distress. Alert and oriented x4. CARDIOVASCULAR: Regular rate and rhythm with a 3/6 systolic murmur best heard at the left upper sternal border. RESPIRATORY: Clear to auscultation bilaterally. ABDOMEN: Normoactive bowel sounds. Soft, nontender, nondistended. EXTREMITIES: No cyanosis, clubbing, or edema. LABORATORY DATA: Chemistry with a sodium of 145, potassium 2.6, chloride 102, CO2 of 34, BUN 24, creatinine 0.66, glucose 221, AST 92, ALT 147, alkaline phosphatase 504, total bilirubin 14.6. IMAGING DATA: No current GI imaging is available for review. ASSESSMENT AND PLAN: The patient is an 80-year-old female with a past medical history of nonalcoholic fatty liver disease, now presenting with elevated LFTs and imaging consistent with metastatic disease with unknown primary. Metastatic disease with unknown primary: The patient initially presented with progressively worsening fatigue and weakness for the past 1 to 2 months and associated with an unintentional weight loss of approximately 15 pounds. On admission to the ER, she was noted to be severely hypokalemic but had imaging findings showing the presence of metastatic disease to the liver, lung, and bone. At this time, the origin of her metastatic disease is unknown with the patient scheduled for a CT-guided liver biopsy tomorrow for further evaluation. All anticoagulation including aspirin and Lovenox has been held in preparation for this particular procedure. RECOMMENDATIONS: 1. Agree with proceeding with a liver biopsy tomorrow for further evaluation of her metastatic disease given the innumerable masses/nodularity within the liver and adequate sample should be able to be achieved. 2. Endoscopic management/evaluation is not likely to contribute any additional findings given her negative prior studies. 3. Pain control per primary team. 4. Continue to hold any anticoagulation in light of CT-guided biopsy tomorrow. 5. Defer to Oncology Services for management of her metastatic disease once the primary malignancy is known. 6. If the patient does decide to proceed with treatment related to her metastatic disease, placement of a biliary stent will not likely be helpful given the normal caliber of the common bile/common hepatic duct and the innumerable liver masses, likely creating intrahepatic cholestasis and an elevated total bilirubin. 7. We will continue to follow peripherally for now. Please call with any questions. Job ID: [id number]
[2020-11-04 16:32] LABS: Potassium 3.4 mmol/L (3.5-5.1)
[2020-11-04] MEDS: Rosuvastatin 20 MG TAB PO SCH (21:08)
[2020-11-04] MEDS: Melatonin 3 MG TAB PO SCH (21:08)
[2020-11-05] MEDS: Nebivolol HCl 5 MG TAB PO SCH ×2 (06:18→20:19)
[2020-11-05 07:23] LABS: #Lymphocytes 0.9 thou/uL (1.20-3.40); #Monocytes 0.6 thou/uL (0.11-0.59); #Neutrophils 9.4 thou/uL (1.40-6.50); %Basophils 0.4 % (0.0-1.0); %Eosinophils 0.2 % (0.0-10.0); %Lymphocytes 8.5 % (21.0-51.0); %Monocytes 5.2 % (0.0-10.0); %Neutrophils 85.8 % (42.0-75.0); Hemoglobin 13.4 g/dL (12.0-16.0); Mean Corpuscular HGB CONC 33.3 g/dL (32.0-36.0); Mean Corpuscular Hemoglobin 32.2 pg (27.0-31.0); Mean Corpuscular Volume 96.7 fL (78.0-98.0); Mean Platelet Volume 9.9 fL (7.4-10.4); Platelet Count 121 thou/uL (130-400); RBC Distribution Width 16.8 % (11.5-14.5); Red Blood Cell (RBC) Count 4.17 mill/uL (4.20-5.40); White Blood Cell (WBC) Count 10.9 thou/uL (4.8-10.8)
[2020-11-05 07:41] LABS: ALT (SGPT) 156 U/L (8-55); AST (SGOT) 97 U/L (5-34); Albumin 2.7 g/dL (3.4-4.8); Alkaline Phosphatase 588 U/L (40-110); Anion Gap 11 mmol/L (10-20); BUN (Urea Nitrogen) 19 mg/dL (9.8-20.1); Bilirubin, Total 16.6 mg/dL (0.2-1.2); Calc. Creatinine Clearance 86 mL/min (70-130); Calcium 7.7 mg/dL (7.8-10.44); Carbon Dioxide 31 mmol/L (23-31); Chloride 102 mmol/L (98-107); Globulin 2.2 g/dL (2.4-3.5); Glucose 217 mg/dL (83-110); Protein, Total 4.9 g/dL (5.8-8.1); Sodium 141 mmol/L (136-145)
[2020-11-05 07:43] LABS: Potassium 2.6 mmol/L (3.5-5.1)
[2020-11-05 07:52] LABS: INR-International Normal Ratio 1.1; PTT 23.5 sec (22.9-36.1); Prothrombin Time 14.3 sec (12.0-14.7)
[2020-11-05 08:37] LABS: Phosphorus 1.2 mg/dL (2.3-4.7)
[2020-11-05] MEDS ORDERED: Potassium Phosphate 30 MMOL in Sodium Chloride 0.9% 250 ML 250 ML IVPB SCH (08:45)
[2020-11-05] MEDS: Potassium Chloride 20 MEQ TAB PO SCH ×2 (09:22→16:47)
[2020-11-05] MEDS: Spironolactone 25 MG TAB PO SCH (09:22)
[2020-11-05] MEDS: Digoxin 0.125 MG TAB PO SCH (09:23)
[2020-11-05] MEDS: Cholecalciferol 1,000 UNITS (25 MCG) TAB PO SCH (09:23)
[2020-11-05] MEDS: FLUoxetine HCl 20 MG CAP PO SCH (09:23)
[2020-11-05] MEDS: Amlodipine 10 MG TAB PO SCH (09:23)
[2020-11-05] MEDS: Losartan 25 MG TAB PO SCH (09:24)
[2020-11-05] MEDS: Loratadine 10 MG TAB PO SCH (09:24)
[2020-11-05] MEDS: Hydroxychloroquine Sulfate 200 MG TAB PO SCH (09:24)
[2020-11-05] MEDS: Insulin Glargine 30 UNITS in Pre-Filled Syringe 1 EACH SC SCH (09:24)
[2020-11-05] MEDS: Potassium Chloride 10 MEQ in Premix Bag 1 BAG IVPB SCH ×2 (09:51→17:38)
[2020-11-05] MEDS ORDERED: Fentanyl 100 MCG/2 ML VIAL ONE (10:01)
[2020-11-05] MEDS ORDERED: Midazolam HCl 2 mg/2 ml Vial ONE (10:02)
[2020-11-05] MEDS ORDERED: Sodium Bicarbonate 2.5 MEQ/5 ML VIAL ONE (10:02)
--- NOTE | 2020-11-05 10:17 | PRG ---
DATE OF SERVICE: 11/05/2020 REASON FOR CONSULTATION: Abnormal GI imaging, showing metastatic disease involving the liver. SUBJECTIVE: Today, the patient states that she did not sleep much last night with increased anxiety surrounding the procedure today. She also states that whenever she takes her CPAP machine off, she has been having some significant difficulty breathing and wonders if she is a candidate for home oxygen therapy. Otherwise, she is doing well with no complaints of nausea, vomiting, fevers, chills, hematemesis, melena, hematochezia, abdominal pain, or pruritus. OBJECTIVE: VITAL SIGNS: Temperature 98, pulse 71, blood pressure 159/81, respiratory rate 20, saturating 90% on room air. GENERAL: The patient was lying in bed, in no acute distress. Alert and oriented x4. CARDIOVASCULAR: Regular rate and rhythm with a 3/6 systolic murmur, best heard at the left upper sternal border. RESPIRATORY: Clear to auscultation bilaterally. ABDOMEN: Normoactive bowel sounds. Soft, nontender, nondistended. EXTREMITIES: No cyanosis, clubbing, or edema. LABORATORY DATA: CBC with a white blood cell count of 10.9, hemoglobin 13.4, hematocrit 40.3, and platelets 121. INR 1.1. Chemistry with a sodium of 141, potassium 2.6, chloride 102, CO2 of 31, BUN 19, creatinine 0.64, glucose 217. AST 97, ALT 156, alkaline phosphatase 588, total bilirubin 16.6. IMAGING DATA: No current GI imaging is available for review. ASSESSMENT AND PLAN: The patient is an 80-year-old female with past medical history of nonalcoholic fatty liver disease, now presenting with elevated LFTs and imaging consistent with metastatic disease with unknown primary, but involvement of the lung, bone, and liver. Metastatic disease with unknown primary: The patient initially presented with progressively worsening fatigue and weakness for 1 to 2 months prior to admission and an unintentional weight loss of approximately 15 pounds. In the ER, she was noted to be severely hypokalemic, but had imaging findings showing the presence of metastatic disease with an unknown primary affecting the liver, lung, and bone. For further workup, the patient was scheduled for CT-guided liver biopsy, but this could not be performed over the weekend, given the anticoagulation this patient had been put on prior to this particular procedure. At this time, however, she has not received any anticoagulation for approximately 48 to 72 hours and should be a suitable candidate for CT-guided liver biopsy today. RECOMMENDATIONS: 1. Agree with CT-guided liver biopsy today for further evaluation of her metastatic disease. 2. Endoscopic management is not likely to contribute any additional findings, given her prior negative studies. 3. Pain control per primary team. 4. Defer to Pulmonary Service for evaluation of the patient's respiratory status and candidacy for home oxygen therapy. 5. We would defer to the Oncology Service for management of her metastatic disease once the primary malignancy is known. 6. The patient has a significant hyperbilirubinemia/cholestasis type picture, likely related to the innumerable hepatic metastases. However, intervention with placing a biliary stent is not likely to be helpful, given the normal caliber of the common bile duct and the innumerable liver masses likely affecting the intrahepatic biliary tree contributing to her elevated bilirubin. We will sign off at this time. Please call with any questions. Job ID: [id number]
--- NOTE | 2020-11-05 10:40 | PDOC.HOSPP ---
- Subjective Encounter Date: 11/05/20 Encounter Time: 08:00 Subjective: Patient seen and examined. No new complaints. No overnight events - Objective Vital Signs & Weight: Vital Signs (12 hours) Temp Pulse Resp BP Pulse Ox 11/05/20 07:00 98.0 F 71 20 159/81 H 90 L 11/05/20 04:50 97.7 F 67 20 164/87 H 92 L 11/04/20 23:45 97.8 F 61 18 166/77 H 94 L Weight Weight 175 lb I&O: 11/04/20 11/05/20 11/06/20 06:59 06:59 06:59 Intake Total 550 Balance 550 Result Diagrams: 11/05/20 06:52 11/05/20 06:52 Additional Labs: Accuchecks 11/05/20 11/04/20 11/04/20 06:14 21:09 15:42 POC Glucose 188 H 233 H 148 H 11/03/20 16:57 POC Glucose 227 H Hospitalist ROS - Review of Systems Constitutional: reports: weakness. denies: fever, chills, sweats, malaise, other ENT: denies: ear pain, ear discharge, nose pain, nose discharge, nose congestion, mouth pain, mouth swelling, throat pain, throat swelling, other Respiratory: denies: cough, dry, shortness of breath, hemoptysis, SOB with excertion, pleuritic pain, sputum, wheezing, other Cardiovascular: denies: chest pain, palpitations, orthopnea, paroxysmal noc. dyspnea, edema, light headedness, other Gastrointestinal: denies: nausea, vomiting, abdominal pain, diarrhea, constipation, melena, hematochezia, other Genitourinary: denies: dysuria, frequency, incontinence, hematuria, retention, other Musculoskeletal: denies: neck pain, shoulder pain, arm pain, back pain, hand pa in, leg pain, foot pain, other - Medication Medications: Active Medications Generic Name Dose Route Start Last Admin Trade Name Freq PRN Reason Stop Dose Admin Amlodipine Besylate 10 mg 10/31/20 09:00 11/05/20 09:23 Amlodipine 10 Mg Tab PO 10 mg DAILY LEONARDO Administration Cholecalciferol 5,000 units 10/31/20 09:00 11/05/20 09:23 Cholecalciferol 1,000 Units (25 Mcg) Tab PO 5,000 units DAILY LEOANRDO Administration Digoxin 0.125 mg 10/31/20 09:00 11/05/20 09:23 Digoxin 0.125 Mg Tab PO 0.125 mg DAILY LEONARDO Administration Fluoxetine HCl 20 mg 10/31/20 09:00 11/05/20 09:23 Fluoxetine Hcl 20 Mg Cap PO 20 mg DAILY LEONARDO Administration Hydroxychloroquine Sulfate 200 mg 10/31/20 09:00 11/05/20 09:24 Hydroxychloroquine Sulfate 200 Mg Tab PO 200 mg DAILY LEONARDO Administration Insulin Glargine 30 units/ 0.3 mls @ 0 mls/hr 11/03/20 09:00 11/05/20 09:24 Miscellaneous Medication SC 0.3 mls QAM LEONARDO Administration Potassium Chloride 10 meq/ 100 mls @ 50 mls/hr 11/05/20 09:45 11/05/20 09:51 Device IVPB 11/05/20 15:44 100 mls Q2H LEONARDO Administration Insulin Human Lispro 0 units 10/29/20 20:18 11/03/20 18:09 Humalog 300 Units/3 Ml Vial SC 4 unit .MODERATE SLIDING SC PRN Administration Moderate Correctional Scale Insulin Human Lispro 0 units 10/29/20 20:18 11/02/20 21:15 Humalog 300 Units/3 Ml Vial SC 2 unit .BEDTIME SLIDING SC PRN Administration Bedtime Correctional Scale Loratadine 10 mg 10/31/20 09:00 11/05/20 09:24 Loratadine 10 Mg Tab PO 10 mg DAILY LEONARDO Administration Losartan Potassium 100 mg 10/31/20 09:00 11/05/20 09:24 Losartan 25 Mg Tab PO 100 mg DAILY LEONARDO Administration Melatonin 6 mg 10/30/20 21:00 11/04/20 21:08 Melatonin 3 Mg Tab PO 6 mg HS LEONARDO Administration Nebivolol 10 mg 10/30/20 21:00 11/05/20 06:18 Nebivolol Hcl 5 Mg Tab PO 10 mg BID LEONARDO Administration Pantoprazole Sodium 40 mg 10/30/20 09:00 11/05/20 09:25 Pantoprazole 40 Mg Tab PO 40 mg DAILY LEONARDO Administration Potassium Chloride 40 meq 11/04/20 08:00 11/05/20 09:22 Potassium Chloride 20 Meq Tab PO 40 meq BID- LEONARDO Administration Rosuvastatin Calcium 20 mg 10/30/20 21:00 11/04/20 21:08 Rosuvastatin 20 Mg Tab PO 20 mg QPM LEONARDO Administration Spironolactone 25 mg 11/05/20 08:00 11/05/20 09:22 Spironolactone 25 Mg Tab PO 25 mg QAM-WM LEONARDO Administration Hospitalist Exam Vitals: Vital Signs (12 hours) Temp Pulse Resp BP Pulse Ox 11/05/20 07:00 98.0 F 71 20 159/81 H 90 L 11/05/20 04:50 97.7 F 67 20 164/87 H 92 L 11/04/20 23:45 97.8 F 61 18 166/77 H 94 L Weight Weight 175 lb General Appearance: NAD, awake alert Eye: PERRL, scleral icterus ENT: normocephalic atraumatic, no oropharyngeal lesions Neck: supple, symmetric, no JVD, no thyromegaly Heart: RRR, no murmur, no gallops, no rubs Respiratory: no wheezes, no rales, no ronchi Gastrointestinal: soft, non-tender, non-distended, normal bowel sounds Extremities: no clubbing, no edema Skin: normal turgor, no lesions Neurological: no focal deficits Musculoskeletal: normal tone, normal strength Psychiatric: normal affect, normal behavior Hosp A/P (1) Lung metastases Code(s): C78.00 - SECONDARY MALIGNANT NEOPLASM OF UNSPECIFIED LUNG Status: Acute (2) Liver metastases Code(s): C78.7 - SECONDARY MALIG NEOPLASM OF LIVER AND INTRAHEPATIC BILE DUCT Status: Acute (3) Atrial fibrillation Code(s): I48.91 - UNSPECIFIED ATRIAL FIBRILLATION Status: Chronic Qualifiers: Atrial fibrillation type: paroxysmal Qualified Code(s): I48.0 - Paroxysmal atrial fibrillation (4) Barretts esophagus Code(s): K22.70 - GONZALEZ'S ESOPHAGUS WITHOUT DYSPLASIA Status: Chronic (5) Diabetes mellitus type 2 in nonobese Code(s): E11.9 - TYPE 2 DIABETES MELLITUS WITHOUT COMPLICATIONS Status: Chronic (6) Hyperlipidemia Code(s): E78.5 - HYPERLIPIDEMIA, UNSPECIFIED Status: Chronic (7) Hypertension Code(s): I10 - ESSENTIAL (PRIMARY) HYPERTENSION Status: Chronic (8) Obstructive sleep apnea Code(s): G47.33 - OBSTRUCTIVE SLEEP APNEA (ADULT) (PEDIATRIC) Status: Chronic (9) PVD (peripheral vascular disease) Code(s): I73.9 - PERIPHERAL VASCULAR DISEASE, UNSPECIFIED Status: Chronic (10) Hypokalemia Code(s): E87.6 - HYPOKALEMIA Status: Acute (11) Hyperbilirubinemia Code(s): E80.6 - OTHER DISORDERS OF BILIRUBIN METABOLISM Status: Acute (12) Hypophosphatemia Code(s): E83.39 - OTHER DISORDERS OF PHOSPHORUS METABOLISM Status: Acute - Plan old records reviewed/req, plan discussed w/ family Continue potassium chloride 40 M EQ p.o. twice daily, today we will give additional 10 M EQ IV 3 doses, will also give her potassium phosphate Today at 4 PM we will repeat potassium and phosphorus and replace accordingly Patient is plan for liver biopsy, after liver biopsy will observe Patient needs to follow-up with oncology after liver biopsy for ongoing care plan Discussed with the patient and family Expecting discharge tomorrow, patient is requesting home health which we will arrange before discharge
--- NOTE | 2020-11-05 11:58 | CT ---
Exam: CT-guided biopsy of the liver HISTORY: Liver metastases. COMPARISON: 10/29/2020. CORRELATION: Abdomen MRI 10/31/2020. FINDINGS: Successful CT-guided biopsy of the left hepatic lobe. Total of two 18-gauge core biopsy matt ples were obtained. No immediate or postprocedure complications. TECHNIQUE: Consent obtained to perform a CT-guided biopsy of the liver. Left hepatic lobe was identif ied. Skin was prepped and draped in a sterile fashion. 1% lidocaine, buffered with sodium bicarbonate was used for local anesthesia. Under CT guidance, a 17-gauge metallic trocar was advanced into the left hepatic lobe. Through this trocar, a total of two 18-gauge biopsies were performed. Lesional tissue was present. Hemostasis was achieved with manual pressure. Patient tolerated the proc edure well. No immediate or postprocedure complication. Postprocedure imaging does not demonstrate a significant perihepatic hematoma. Brushing Operator images demonstrate worsening pleural effusion, right greater than left when compared to a CT fr om 10/30/2020. IMPRESSION: 1. Successful CT-guided biopsy of the liver. 2. Worsening bilateral pleural effusions, right greater than left. Transcribed Date/Time: 11/05/2020 1:35 PM
--- NOTE | 2020-11-05 14:32 | PDOC.MOPN ---
Interval History: liver biopsy today, tolerated well. - Vital Signs Vital Signs: Vital Signs (12 hours) Temp Pulse Resp BP Pulse Ox 11/05/20 09:15 92 L 11/05/20 07:00 98.0 F 71 20 159/81 H 90 L 11/05/20 04:50 97.7 F 67 20 164/87 H 92 L Weight Weight 175 lb - Physical Exam General: Alert, Oriented x3, No acute distress HEENT: Atraumatic, PERRLA, EOMI, Mucous membr. moist/pink Lungs: Clear to auscultation Cardiovascular: Regular rate Abdomen: Other (distended) Neurological: Normal speech Psych/Mental Status: Mental status NL - Labs Result Diagrams: 11/05/20 06:52 11/05/20 06:52 Lab results: Laboratory Results - last 24 hr 11/05/20 12:16: POC Glucose 142 H 11/05/20 06:52: Phosphorus 1.2 L 11/05/20 06:52: PT 14.3, INR 1.1, APTT 23.5 11/05/20 06:52: WBC 10.9 H, RBC 4.17 L, Hgb 13.4, Hct 40.3, MCV 96.7, MCH 32.2 H, MCHC 33.3, RDW 16.8 H, Plt Count 121 L, MPV 9.9, Neutrophils % 85.8 H, Lymphocytes % 8.5 L, Monocytes % 5.2, Eosinophils % 0.2, Basophils % 0.4, Neutrophils # 9.4 H, Lymphocytes # 0.9 L, Monocytes # 0.6 H, Eosinophils # 0.0, Basophils # 0.0 11/05/20 06:52: Sodium 141, Potassium 2.6 L*, Chloride 102, Carbon Dioxide 31, Anion Gap 11, BUN 19, Creatinine 0.64, Estimated GFR (MDRD) 89, Glucose 217 H, Calcium 7.7 L, Total Bilirubin 16.6 H, AST 97 H, ALT 156 H, Alkaline Phosphatase 588 H, Serum Total Protein 4.9 L, Albumin 2.7 L, Globulin 2.2 L, Albumin/Globulin Ratio 1.2 11/05/20 06:14: POC Glucose 188 H 11/04/20 21:09: POC Glucose 233 H 11/04/20 16:08: Potassium 3.4 L 11/04/20 15:42: POC Glucose 148 H 11/03/20 16:57: POC Glucose 227 H Status: lab reviewed by me A/P - Problem (1) Hyperbilirubinemia Current Visit: Yes Code(s): E80.6 - OTHER DISORDERS OF BILIRUBIN METABOLISM Status: Acute (2) Liver metastases Current Visit: Yes Code(s): C78.7 - SECONDARY MALIG NEOPLASM OF LIVER AND INTRAHEPATIC BILE DUCT Status: Acute (3) Lung metastases Current Visit: Yes Code(s): C78.00 - SECONDARY MALIGNANT NEOPLASM OF UNSPECIFIED LUNG Status: Acute - Plan Plan: 1. await biopsy results, suspect metastatic lung cancer 2. will need immunohistochemical stains 3. ok to go home once stable 4. follow-up in clinin on Nov 13, 10:15am with Dr. Peres.
[2020-11-05 16:58] LABS: Phosphorus 2.3 mg/dL (2.3-4.7); Potassium 4.3 mmol/L (3.5-5.1)
[2020-11-05] MEDS ORDERED: Potassium Chloride 10 MEQ in Premix Bag 1 BAG IVPB SCH (19:45)
[2020-11-05] MEDS: Melatonin 3 MG TAB PO SCH (20:19)
[2020-11-05] MEDS: Rosuvastatin 20 MG TAB PO SCH (20:19)
[2020-11-06 06:35] LABS: ALT (SGPT) 150 U/L (8-55); AST (SGOT) 111 U/L (5-34); Albumin 2.5 g/dL (3.4-4.8); Alkaline Phosphatase 645 U/L (40-110); Anion Gap 13 mmol/L (10-20); BUN (Urea Nitrogen) 17 mg/dL (9.8-20.1); Bilirubin, Total 17.7 mg/dL (0.2-1.2); Calc. Creatinine Clearance 111 mL/min (70-130); Calcium 7.8 mg/dL (7.8-10.44); Carbon Dioxide 28 mmol/L (23-31); Chloride 103 mmol/L (98-107); Globulin 2.2 g/dL (2.4-3.5); Glucose 123 mg/dL (83-110); Potassium 3.2 mmol/L (3.5-5.1); Protein, Total 4.7 g/dL (5.8-8.1); Sodium 141 mmol/L (136-145)
[2020-11-06] MEDS ORDERED: Potassium Chloride 20 MEQ TAB PO SCH (07:30)
[2020-11-06 07:58] VITALS: TEMP 97.8
[2020-11-06] MEDS: Spironolactone 25 MG TAB PO SCH (09:10)
[2020-11-06] MEDS: Cholecalciferol 1,000 UNITS (25 MCG) TAB PO SCH (09:11)
[2020-11-06] MEDS: Amlodipine 10 MG TAB PO SCH (09:11)
[2020-11-06] MEDS: Loratadine 10 MG TAB PO SCH (09:11)
[2020-11-06] MEDS: Digoxin 0.125 MG TAB PO SCH (09:11)
[2020-11-06] MEDS: FLUoxetine HCl 20 MG CAP PO SCH (09:12)
[2020-11-06] MEDS: Nebivolol HCl 5 MG TAB PO SCH (09:12)
[2020-11-06] MEDS: Insulin Glargine 30 UNITS in Pre-Filled Syringe 1 EACH SC SCH (09:13)
[2020-11-06] MEDS: Losartan 25 MG TAB PO SCH (09:13)
[2020-11-06] MEDS: Hydroxychloroquine Sulfate 200 MG TAB PO SCH (09:13)
--- NOTE | 2020-11-06 09:33 | CT ---
Exam: CT-guided biopsy of the liver HISTORY: Liver metastases. COMPARISON: 10/29/2020. CORRELATION: Abdomen MRI 10/31/2020. FINDINGS: Successful CT-guided biopsy of the left hepatic lobe. Total of two 18-gauge core biopsy matt ples were obtained. No immediate or postprocedure complications. TECHNIQUE: Consent obtained to perform a CT-guided biopsy of the liver. Left hepatic lobe was identif ied. Skin was prepped and draped in a sterile fashion. 1% lidocaine, buffered with sodium bicarbonate was used for local anesthesia. Under CT guidance, a 17-gauge metallic trocar was advanced into the left hepatic lobe. Through this trocar, a total of two 18-gauge biopsies were performed. Lesional tissue was present. Hemostasis was achieved with manual pressure. Patient tolerated the proc edure well. No immediate or postprocedure complication. Postprocedure imaging does not demonstrate a significant perihepatic hematoma. Echo Technologist images demonstrate worsening pleural effusion, right greater than left when compared to a CT fr om 10/30/2020. IMPRESSION: 1. Successful CT-guided biopsy of the liver. 2. Worsening bilateral pleural effusions, right greater than left. Transcribed Date/Time: 11/06/2020 9:32 AM
--- NOTE | 2020-11-06 09:49 | PDOC.DS.DS ---
Provider Date of Admission: 10/29/20 17:13 Admitting Provider: Daniele Hendricks MD Consultations: Gastroentrology, Oncology, Pulmonary Primary Care Physician: Renate Sands MD Course Hospital Course: Patient was admitted on October 29, 2020, patient was transferred to hospital because of abnormal lab result, patient also had a weight loss, In emergency room patient had a CT abdomen and pelvis which was suspicious for metastatic disease, patient has significantly abnormal LFT with jaundice so we consulted gastroenterology, this patient already had recent upper endoscopy and colonoscopy and considering low yield with further endoscopy gastroenterology recommended MRI of abdomen, MRI abdomen also showed metastasis in liver and the lung. There was also concern of osseous metastasis so we did a bone scan and that was negative for any bone metastasis. We also consulted oncology and they agreed with the liver biopsy, as patient was on Eliquis and patient received Lovenox and aspirin while in hospital so radiology delayed liver biopsy procedure, patient also wanted to stay in hospital rather than doing liver biopsy as an outpatient basis so patient stayed in hospital for 3 days, subsequently on Thursday patient had a liver biopsy and pathology report is pending. While in hospital we noted that she had abnormal electrolytes with the low potassium and low phosphorus which was aggressively replaced while in hospital and corrected. Oncology evaluated this patient and they gave her outpatient follow-up on November 13 at that time treatment decisions will be made based on pathology report. We have arranged home health on discharge and we have added Aldactone and potassium supplementation on her discharge medication. She will resume all her previous medication. Patient seen and examined bedside today, patient is medically stable for discharge. Patient was requesting pulmonology consultation for her CPAP pressure setting so we put a consult for pulmonology while in hospital. Resuscitation Status: 10/29/20 17:44 Resuscitation Status Routine Resuscitation Status: FULL: Full Resuscitation Lab Results: 11/05/20 06:52 11/06/20 06:01 Abnormal Lab Results - Last 48 hrs 11/04/20 16:08: Potassium 3.4 L 11/05/20 06:52: Potassium 2.6 L*, Calcium 7.7 L, Total Bilirubin 16.6 H, AST 97 H, ALT 156 H, Alkaline Phosphatase 588 H, Serum Total Protein 4.9 L, Albumin 2.7 L, Globulin 2.2 L 11/05/20 06:52: WBC 10.9 H, RBC 4.17 L, MCH 32.2 H, RDW 16.8 H, Plt Count 121 L, Neutrophils % 85.8 H, Lymphocytes % 8.5 L, Neutrophils # 9.4 H, Lymphocytes # 0.9 L, Monocytes # 0.6 H 11/05/20 06:52: Phosphorus 1.2 L 11/06/20 06:01: Potassium 3.2 L, Creatinine 0.50 L, Total Bilirubin 17.7 H, AST 111 H, ALT 150 H, Alkaline Phosphatase 645 H, Serum Total Protein 4.7 L, Albumin 2.5 L, Globulin 2.2 L, Albumin/Globulin Ratio 1.1 L Vitals: Vital Signs (12 hours) Temp Pulse Resp BP Pulse Ox 11/06/20 07:58 97.8 F 64 20 143/84 H 92 L 11/06/20 04:45 97.7 F 77 22 H 141/82 H 90 L 11/05/20 23:30 98.3 F 64 20 154/90 H 92 L Weight Weight 175 lb Physical Exam: The patient was seen and examined on the day of discharge. General Appearance: NAD, awake alert Eye: PERRL, scleral icterus ENT: normocephalic atraumatic, no oropharyngeal lesions Neck: supple, symmetric, no JVD Respiratory: no wheezes, no rales, no ronchi Cardiovascular: RRR, no murmur, no gallops, no rubs Gastrointestinal: soft, non-tender, non-distended, normal bowel sounds Extremities: no clubbing, 1+ LE edema Skin: normal turgor, no lesions Neurological: no focal deficits Musculoskeletal: normal tone, normal strength PSYCH: normal affect, normal behavior Problem (1) Lung metastases Code(s): C78.00 - SECONDARY MALIGNANT NEOPLASM OF UNSPECIFIED LUNG Status: Acute (2) Liver metastases Code(s): C78.7 - SECONDARY MALIG NEOPLASM OF LIVER AND INTRAHEPATIC BILE DUCT Status: Acute (3) Atrial fibrillation Code(s): I48.91 - UNSPECIFIED ATRIAL FIBRILLATION Status: Chronic Qualifiers: Atrial fibrillation type: paroxysmal Qualified Code(s): I48.0 - Paroxysmal atrial fibrillation (4) Barretts esophagus Code(s): K22.70 - GONZALEZ'S ESOPHAGUS WITHOUT DYSPLASIA Status: Chronic (5) Diabetes mellitus type 2 in nonobese Code(s): E11.9 - TYPE 2 DIABETES MELLITUS WITHOUT COMPLICATIONS Status: Chronic (6) Hyperlipidemia Code(s): E78.5 - HYPERLIPIDEMIA, UNSPECIFIED Status: Chronic (7) Hypertension Code(s): I10 - ESSENTIAL (PRIMARY) HYPERTENSION Status: Chronic (8) Obstructive sleep apnea Code(s): G47.33 - OBSTRUCTIVE SLEEP APNEA (ADULT) (PEDIATRIC) Status: Chronic (9) PVD (peripheral vascular disease) Code(s): I73.9 - PERIPHERAL VASCULAR DISEASE, UNSPECIFIED Status: Chronic (10) Hypokalemia Code(s): E87.6 - HYPOKALEMIA Status: Acute (11) Hyperbilirubinemia Code(s): E80.6 - OTHER DISORDERS OF BILIRUBIN METABOLISM Status: Acute (12) Hypophosphatemia Code(s): E83.39 - OTHER DISORDERS OF PHOSPHORUS METABOLISM Status: Acute Plan Prescriptions: Spironolactone [Aldactone] 25 mg PO QA- #30 tab Potassium Chloride [K-Dur] 20 meq PO DAILY #30 tab Home Medications: Medication Instructions Recorded Confirmed Type Rosuvastatin [Crestor] 20 mg PO QPM 04/27/15 10/29/20 History Amlodipine Besylate [amLODIPine 10 mg PO DAILY 10/29/20 10/29/20 History Besylate] Apixaban [Eliquis] 5 mg PO BID 10/29/20 10/29/20 History Aspirin [Ecotrin Low Strength] 81 mg PO DAILY 10/29/20 10/29/20 History Cetirizine HCl [Zyrtec] 10 mg PO DAILY 10/29/20 10/29/20 History Cholecalciferol (Vitamin D3) 5,000 unit PO DAILY 10/29/20 10/29/20 History [Vitamin D3] Cinnamon Bark [Cinnamon] 2,000 mg PO DAILY 10/29/20 10/29/20 History Cyanocobalamin (Vitamin B-12) 1,000 mcg PO DAILY 10/29/20 10/29/20 History [Vitamin B-12] Dapagliflozin/Saxagliptin HCl 1 each PO DAILY 10/29/20 10/29/20 History [Qtern 10 mg-5 mg Tablet] Digoxin [Lanoxin] 0.125 mg PO DAILY 10/29/20 10/29/20 History FLUoxetine HCl [Fluoxetine HCl] 20 mg PO DAILY 10/29/20 10/29/20 History Glucosam Sul Na/Chondr [Optiflex 1 each PO DAILY 10/29/20 10/29/20 History Complete Combo Pack] Hydrochlorothiazide 25 mg PO DAILY 10/29/20 10/29/20 History Hydroxychloroquine Sulfate 200 mg PO DAILY 10/29/20 10/29/20 History [Plaquenil] Insulin Glargine,Hum.Rec.Anlog 68 unit SQ QAM 10/29/20 10/29/20 History [Toujeo Solostar] Iron 18 mg PO DAILY 10/29/20 10/29/20 History Magnesium Oxide [Magnesium] 400 mg PO DAILY 10/29/20 10/29/20 History Milk Thistle 175 mg PO DAILY 10/29/20 10/29/20 History Multivit-Min/FA/Lycopen/Lutein 1 each PO DAILY 10/29/20 10/29/20 History [Centrum Silver Tablet] Nebivolol HCl [Bystolic] 10 mg PO BID 10/29/20 10/29/20 History [place]-3/DHA/EPA/Fish Oil [Fish Oil 2 cap PO BID 10/29/20 10/29/20 History 1,400 mg Softgel] Pantoprazole Sodium 20 mg PO DAILY 10/29/20 10/29/20 History Telmisartan 80 mg PO DAILY 10/29/20 10/29/20 History Ubidecarenone [Co Q-10] 100 mg PO DAILY 10/29/20 10/29/20 History Zinc 25 mg PO DAILY 10/29/20 10/29/20 History Potassium Chloride [K-Dur] 20 meq PO DAILY #30 tab 11/06/20 Rx Spironolactone [Aldactone] 25 mg PO QAM-WM #30 tab 11/06/20 Rx Allergies: No Known Allergies Allergy (Verified 12/25/19 16:24) Activity:: Activity as Tolerated Nourishment:: Heart Healthy Diet Therapies:: Home Health Equipment/Supplies:: Not Applicable IV Therapy:: Not Applicable Referrals: Renate Sands MD [Primary Care Provider] - Salma Peres MD [Active] - 11/13/20 10:15 am Disposition: HOME HEALTH Quality CORE MEASURES:: N/A
[2020-11-06] MEDS: Potassium Chloride 20 MEQ TAB PO SCH (12:01)
[2020-11-06 15:05] VITALS: BP 142/83
== END 2020-11-06 13:55 | disposition home health service (06) | DRG 436 ==
LOC: ERS 12:39 → 2NO 17:13 → T4-A 10-30 17:09
PROVIDERS: ADMIT Internal Medicine; ATTEND Internal Medicine
PROC: 0FB23ZX Excision of Left Lobe Liver, Percutaneous Approach, Diagnostic (ICD-10-PCS; principal; 2020-11-06)
DX: C78.7 Secondary malignant neoplasm of liver and intrahepatic bile duct (principal); C78.02 Secondary malignant neoplasm of left lung; C78.01 Secondary malignant neoplasm of right lung; J90 Pleural effusion, not elsewhere classified; Z20.822 Contact with and (suspected) exposure to COVID-19; E11.51 Type 2 diabetes mellitus with diabetic peripheral angiopathy without gangrene; E78.5 Hyperlipidemia, unspecified; E78.00 Pure hypercholesterolemia, unspecified; I10 Essential (primary) hypertension; K21.9 Gastro-esophageal reflux disease without esophagitis; F32.9 Major depressive disorder, single episode, unspecified; K76.0 Fatty (change of) liver, not elsewhere classified; G47.33 Obstructive sleep apnea (adult) (pediatric); E87.6 Hypokalemia; K22.70 Barrett's esophagus without dysplasia; M06.9 Rheumatoid arthritis, unspecified; I48.0 Paroxysmal atrial fibrillation; E83.39 Other disorders of phosphorus metabolism; C80.1 Malignant (primary) neoplasm, unspecified; Z79.4 Long term (current) use of insulin; Z79.899 Other long term (current) drug therapy; Z79.01 Long term (current) use of anticoagulants; Z87.891 Personal history of nicotine dependence; Z79.82 Long term (current) use of aspirin
CPT/HCPCS: 36415; 36416; 47000; 71045; 71260; 74177; 74183; 77002; 78306; 80048; 80053; 80162; 82105; 82378; 82553; 83735; 83880; 84100; 84484; 85025; 85610; 85730; 86304; 87635; 88307; 88333; 88341; 88342; 88360; 93005; 96365; 96366; 96367; A9503; A9579; J0456; J0692; J0696; J1650; J1815; J2250; J3010; J3475; J3480; J3490; J7050; Q9967; U0003; U0005